=== PATIENT | male | born 1965 | race Two or more races ===

== ENCOUNTER 2018-09-07 16:11 | Inpatient (IN) | payer OTHER ==
[~2018-09-07] VITALS: Ht 182.9 cm; Wt 88.5 kg
--- NOTE | 2018-09-07 16:15 | NUR ---
PT [facility] FROM [facility] TO ER BED 15. PER REPORT, PT C/O LOWER ABDOMINAL PAIN SINCE THIS AM. PT DENIES N/V/D. GOWNED AND PLACED ON MONITOR. HYPERTENSIVE OTHERWISE STABLE VITALS. AWAITING MD PRUETT.
--- NOTE | 2018-09-07 17:22 | NUR ---
KAL SHELTON AT BEDSIDE FOR EVAL.
[2018-09-07] MEDS ORDERED: IV NS 0.9% 1,000 ML BAG IV ONE ×2 (17:30→19:30)
[2018-09-07] MEDS ORDERED: MORPHINE SULFATE INJ 2 MG/ML DISP.SYRIN IV ONE (17:30)
[2018-09-07] MEDS ORDERED: ONDANSETRON HCL/PF 4 MG/2 ML VIAL IVP ONE (17:30)
[2018-09-07 17:53] LABS: HEMATOCRIT 36 % (39-51); MEAN CORPUSCULAR HGB CONC 36 g/dl (31.0-36.0); MEAN CORPUSCULAR VOLUME 84 fL (80-96); PLATELET COUNT (AUTO) 92 /CMM (150-450); RDW COEFFICIENT OF VARIATION 13.7 (11.5-15.0); RED BLOOD CELL COUNT(AUTO) 4.31 MIL/uL (4.5-6.0); WHITE BLOOD COUNT (AUTO) 3.4 K/uL (4.3-11.0)
[2018-09-07] MEDS ORDERED: ONDANSETRON HCL/PF 4 MG/2 ML VIAL ONE (17:54)
[2018-09-07] MEDS ORDERED: MORPHINE SULFATE INJ 4 MG/ML DISP.SYRIN ONE (17:55)
[2018-09-07 18:10] LABS: APPEARANCE,URINE Clear (CLEAR); BILIRUBIN,URINE Negative (NEGATIVE); BLOOD, URINE Negative Ery/uL (NEGATIVE); COLOR,URINE Yellow (YELLOW); KETONES,URINE Negative (NEGATIVE); LEUKOCYTE ESTERASE ,URINE Negative (NEGATIVE); NITRITE, URINE Negative (NEGATIVE); PROTEIN,URINE Negative (NEGATIVE); UGLUCOSE >=1000 mg/dL (NEGATIVE); UROBILINOGEN,URINE 0.2 EU/dL (0.2)
[2018-09-07 18:35] LABS: BAND % (MANUAL) 18 % (0.0-5.0); LYMPHOCYTES % (MANUAL) 34 % (16-48); MONOCYTES % (MANUAL) 6 % (0-11.0); NEUTROPHILS % (MANUAL) 42 (42-76)
[2018-09-07 18:40] LABS: BACTERIA,URINE Few /HPF (None Seen); RBC,URINE 0-2 /HPF (0-2); SQUAMOUS EPITHELIAL CELL,UR Few /HPF (None Seen); WBC,URINE 0-2 /HPF (0-3)
[2018-09-07 18:48] LABS: ALBUMIN 3.8 g/dL (3.4-5.0); BILIRUBIN,DIRECT 0.1 mg/dL (0.0-0.2); BILIRUBIN,TOTAL 0.9 mg/dL (0.2-1.0); CALCIUM, SERUM 9.1 mg/dL (8.5-10.1); POTASSIUM 4.4 mmol/L (3.5-5.1); TOTAL PROTEIN, SERUM 7.9 g/dL (6.4-8.2)
[2018-09-07 19:12] LABS: INR 0.96 (0.87-1.13)
--- NOTE | 2018-09-07 19:19 | NUR ---
REPORT TO CHIKA SANDERS FOR [facility].
[2018-09-07] MEDS ORDERED: IV LR 1000 ML 1,000 ML IV ONE (19:30)
[2018-09-07] MEDS ORDERED: INSULIN REGULAR, HUMAN 100 UNIT in IV NS 0.9% 99 ML IV SCH ×2 (19:30)
--- NOTE | 2018-09-07 19:30 | NUR ---
PT AA/OX4. VSS. NAD. WILL CONTINUE TO MONITOR.
[2018-09-07] MEDS ORDERED: INSULIN REGULAR, HUMAN 100 UNIT/ML 10 ML VIAL ONE (19:38)
[2018-09-07 19:58] LABS: ABG BASE EXCESS -4.9 mmol/L; ABG OXYGEN SATURATION 94.7 % (92.0-98.5); ABG PCO2 38.7 mmHg (35.0-45.0); ABG PO2 76.3 mmHg (75.0-100.0); AaDO2 27.1 mmHg; COHb 0.5 % (0.5-1.5); MetHb 0.3 % (0.0-1.5); O2Hb 93.9 % (94.0-97.0); SITE, ABG Right Radial; VENT MODE, BG Room Air
--- NOTE | 2018-09-07 21:15 | NUR ---
Patient is resting comfortably in bed with eyes closed. Easily aroused. VSS
[2018-09-07] MEDS ORDERED: MORPHINE SULFATE INJ 2 MG/ML DISP.SYRIN IV PRN (21:30)
[2018-09-07] MEDS ORDERED: MAGNESIUM HYDROXIDE 30 ML UDC PO PRN (21:30)
[2018-09-07] MEDS ORDERED: HYDROCODONE/APAP 5/325MG 1 EACH TABLET PO PRN (21:30)
[2018-09-07] MEDS ORDERED: INSULIN REGULAR, HUMAN 100 UNIT in IV NS 0.9% 99 ML IV PRN ×2 (21:30)
[2018-09-07] MEDS ORDERED: ONDANSETRON HCL/PF 4 MG/2 ML VIAL IVP PRN (21:30)
[2018-09-07] MEDS ORDERED: ACETAMINOPHEN 325 MG TABLET PO PRN (21:30)
[2018-09-07] MEDS ORDERED: MAG HYDROX/AL HYDROX/SIMETH 30 ML UDC PO PRN (21:30)
[2018-09-07] MEDS ORDERED: MISCELLANEOUS MED 1 EA EA IV ONE ×2 (21:30→23:00)
[2018-09-07] MEDS ORDERED: Z GUARD REMEDY 2 OZ OINT TP PRN (21:30)
--- NOTE | 2018-09-07 21:30 | NUR ---
1L NS WITH 20mEQ KVL @ 250ML/HR, VERBAL ORDER BY DR NAGEL
[2018-09-07] MEDS ORDERED: IV PREMIX NS +20MEQ KCL 1 L IV ONE (21:44)
[2018-09-07] MEDS ORDERED: METF-442 PO (22:05)
[2018-09-07] MEDS ORDERED: ASPI-1169 PO (22:06)
[2018-09-07] MEDS ORDERED: LISI2.5T2 PO (22:07)
[2018-09-07] MEDS ORDERED: GLIP5TAB13 PO (22:08)
--- NOTE | 2018-09-07 22:12 | NUR ---
REPORT GIVEN TO SURGICAL INSTRUMENT MAKER MARIAM
[2018-09-07] MEDS: IV NS 0.9% 1,000 ML IV PRN (22:30)
--- NOTE | 2018-09-07 22:30 | NUR ---
INSTALLER INTERIOR ASSEMBLIES CALLED LAB FOR 2200 LAB DRAW.
[2018-09-07 22:36] VITALS: BP 167/119
--- NOTE | 2018-09-07 22:38 | NUR ---
PT TRANSPORTED TO ICU WITH STABLE CONDITION. VSS. NAD. VIA ACLS PROTOCOL
[2018-09-07] MEDS: BLOOD SUGAR DIAGNOSTIC 1 EACH STRIP IN SCH (22:54)
[2018-09-07 23:00] VITALS: BP 149/96
[2018-09-07 23:30] VITALS: BP 118/74
--- NOTE | 2018-09-07 23:30 | NUR ---
COMMAND AND CONTROL SPECIALIST SECOND CALL PLACED TO LAB FOR LAB WORK.
[2018-09-07 23:53] LABS: MAGNESIUM 1.5 mg/dL (1.8-2.4); POTASSIUM 3.5 mmol/L (3.5-5.1)
[2018-09-08] VITALS (25 sets, daily range): BP systolic 101–160; BP diastolic 43–120
[2018-09-08 00:05] LABS: CREATININE 0.8 mg/dL (0.6-1.3)
[2018-09-08] MEDS: BLOOD SUGAR DIAGNOSTIC 1 EACH STRIP IN SCH ×11 (00:58→21:00)
--- NOTE | 2018-09-08 01:00 | NUR ---
ADJUNCT PHILOSOPHY FACULTY CALL PLACED TO Marisel SANCHEZ FOR BLOOD GLUCOSE <250; PER SERVICE DR DUFFY IS DISTRIBUTION A CLASS LINEMAN.
--- NOTE | 2018-09-08 02:00 | NUR ---
DIRECTOR WRITING STILL AWAITING CALL BACK FROM DR DUFFY.
[2018-09-08 02:49] LABS: CALCIUM, SERUM 7.1 mg/dL (8.5-10.1); POTASSIUM 3.3 mmol/L (3.5-5.1)
[2018-09-08 02:55] LABS: CREATININE 0.8 mg/dL (0.6-1.3)
[2018-09-08] MEDS: IV NS 0.9% 1,000 ML IV PRN ×3 (03:26→14:25)
--- NOTE | 2018-09-08 04:50 | NUR ---
OUTREACH COORDINATOR PER [facility] SERVICE Marisel SANCHEZ IS WOMEN DESIGNER NOT DR DUFFY THEY WILL PAGE HIM.
[2018-09-08] MEDS ORDERED: DEXTROSE 50%-WATER 50 ML DISP.SYRIN IV PRN (05:00)
[2018-09-08] MEDS ORDERED: POTASSIUM CHLORIDE 20 MEQ TAB.PRT.SR PO ONE (05:00)
--- NOTE | 2018-09-08 05:30 | NUR ---
COATER SLATE INSULIN DRIP DISCONTINUED; BEGIN AGGRESSIVE SCALE.
[2018-09-08] MEDS: Magnesium 1GM/D5W 100ML PREMIX 100 ML IV SCH ×3 (05:32→06:32)
[2018-09-08] MEDS ORDERED: FERR325T24 PO (07:22)
[2018-09-08] MEDS ORDERED: ATOR40TA PO (07:22)
[2018-09-08] MEDS ORDERED: INSU100V7 SQ (07:22)
--- NOTE | 2018-09-08 07:30 | NUR ---
ICU/RN: Pt received in bed, breathing even and unlabored, no distress, blind, A&Ox4, denies abd discomfort. IVF infusing well. Pt oriented to unit, safety measures in place. Will cont to monitor pt status
[2018-09-08 08:29] LABS: BASOPHILS % (AUTO) 0.8 % (0.0-2.0); EOSINOPHILS % (AUTO) 2.7 % (0.0-6.0); HEMATOCRIT 33 % (39-51); HEMOGLOBIN 12.2 g/dL (13.5-17.5); LYMPHOCYTES # (AUTO) 1.4 /CMM (0.8-4.8); LYMPHOCYTES % (AUTO) 36.3 % (20.0-44.0); MEAN CORPUSCULAR HGB CONC 37 g/dl (31.0-36.0); MEAN CORPUSCULAR VOLUME 82 fL (80-96); MONOCYTES # (AUTO) 0.2 /CMM (0.1-1.30); MONOCYTES % (AUTO) 5.4 % (2.0-12.0); NEUTROPHILS % (AUTO) 54.8 % (43.0-81.0); PLATELET COUNT (AUTO) 66 /CMM (150-450); RED BLOOD CELL COUNT(AUTO) 4.05 MIL/uL (4.5-6.0); WHITE BLOOD COUNT (AUTO) 3.7 K/uL (4.3-11.0)
[2018-09-08] MEDS ORDERED: MORPHINE SULFATE INJ 4 MG/ML DISP.SYRIN IV PRN (08:30)
[2018-09-08] MEDS: INSULIN REGULAR, HUMAN 100 UNIT/ML 3 ML VIAL SQ PRN ×4 (09:02→20:53)
[2018-09-08 09:06] LABS: CALCIUM, SERUM 7.7 mg/dL (8.5-10.1); CREATININE 1.1 mg/dL (0.6-1.3); MAGNESIUM 2.1 mg/dL (1.8-2.4); PHOSPHORUS 3.2 mg/dL (2.5-4.9); POTASSIUM 4.6 mmol/L (3.5-5.1)
[2018-09-08 09:15] LABS: THYROID STIMULATING HORMONE 2.41 uIU/mL (0.358-3.74)
--- NOTE | 2018-09-08 11:00 | NUR ---
ICU/RN: Dr Hernandez at bedside; updated on pt status, labs reviewed. Pt off insulin drip. Tolerating diet, no abd pain noted.
--- NOTE | 2018-09-08 12:10 | NUR ---
ICU/RN: Blood glucose 486mg/DL, Dr Hernandez notified. Lantus SQ 20units x1 SQ in addition to 20 units R insulin per sliding scale and downgrade to tele ordered. middle school math teacher notified.
[2018-09-08] MEDS ORDERED: INSULIN GLARGINE, 100 UNIT/ML CARTRIDGE SQ ONE (12:30)
--- NOTE | 2018-09-08 15:50 | NUR ---
ICU/RN: Pt transferred to [facility] in stable condition, pt denies pain/discomfort. No s/s hypoglycemia, hyperglycemia. All belongings transferred with pt. Bedside report given to MARILYN Thayer for [facility].
--- NOTE | 2018-09-08 16:00 | NUR ---
MIRROR PAINTER NOTE RECEIVED PATIENT FROM ICU ALERT , ORIENTED X3 , PLACED ON TELE MONITOR SR ST 116 . STILL REFUIN BILATERAL DVT PUMPS . VS TAKEN, NO SOB NOTED, ON IVF ORDERED LT AC HL AND RT FA HL INTACT ,ALL NEEDS NEEDS ATTENDED ,WILL CONT TO MONITOR CLOSELY
[2018-09-08] MEDS: FERROUS SULFATE (325 MG) 325 MG/TAB TABLET PO SCH (16:51)
[2018-09-08] MEDS: glipiZIDE 5 MG TABLET PO SCH (17:27)
--- NOTE | 2018-09-08 18:48 | NUR ---
CAUL PULLER NOTE RESTING COMFORTABLY NOT IN DISTRESS, ALL NEEDS ATTENDED, CALL LIGHT WITHIN REACH
--- NOTE | 2018-09-08 21:31 | NUR ---
RN NOTES IN BED RESTING COMFORTABLY WITH NO DISTRESS NOTED. BREATHING EVEN AND UNLABORED. NO COMPLAINT OF PAIN OR DISCOMFORT. ALERT AND ORIENTED, VERBALLY ABLE TO COMMUNICATE NEEDS. CALLED MD RE: JAEL WILD, ORDERED TO HOLD FOR TODAY AND TO START TOMORROW. NOTED AND CARRIED OUT. WILL CONTINUE TO MONITOR
--- NOTE | 2018-09-08 21:32 | NUR ---
Patient lives at home with family. He is ambulatory and independent with adl's. Has hx of insulin dependent diabetes. Has glucometer, stated he monitor his blood sugar regularly and has been compliant with medications. Current dc plan is to dc back home, family will provide ride. Addendum: 09/08/18 at 2133 by JOSSIE MORENO RN Amended: Links added.
[2018-09-08] MEDS ORDERED: INSULIN GLARGINE, 100 UNIT/ML CARTRIDGE SQ SCH (22:00)
[2018-09-09] VITALS: BP 123/91
[2018-09-09] MEDS: INSULIN REGULAR, HUMAN 100 UNIT/ML 3 ML VIAL SQ PRN ×4 (01:16→12:55)
[2018-09-09] MEDS: BLOOD SUGAR DIAGNOSTIC 1 EACH STRIP IN SCH ×5 (01:17→17:06)
[2018-09-09 04:00] VITALS: BP 111/70
--- NOTE | 2018-09-09 05:55 | NUR ---
RN NOTES NO COMPLAINT OF PAIN OF THIS TIME. NO DISTRESS NOTED. BLOOD SUGAR AT 0100 WAS 215 WITH 8 UNITS AND AT 0500 254 WITH 12 UNITS OF INSULIN PER SLIDING SCALE. MD MADE AWARE. RESTING COMFORTABLY IN BED. VITAL SIGNS WNL. WILL CONTINUE TO MONITOR AND ENDORSE TO AM SHIFT FOR CONTINUITY OF CARE
--- NOTE | 2018-09-09 07:10 | NUR ---
TELE/RN INITIAL NOTES RECEIVED PT IN BED, A/OX3, TOLERATING ROOM AIR WELL, NO SOB NOTED. NO C/O PAIN AT THIS TIME. SR ON TELEMONITOR. IV LINES INTACT AND PATENT. NO SIGNS OF HYPO/HYPERGLYCEMIA NOTED. HOB ELEVATED. SAFETY MEASURES IN PLACED. CALL LIGHT WITHIN REACH. WILL CONT TO MONITOR
[2018-09-09 08:00] VITALS: BP 110/70
[2018-09-09] MEDS ORDERED: LISINOPRIL (10MG) 10 MG TABLET PO SCH (09:00)
[2018-09-09] MEDS: METFORMIN 500 MG TABLET PO SCH ×2 (09:00→17:00)
[2018-09-09] MEDS ORDERED: ASPIRIN 81 MG TAB.CHEW PO SCH (09:00)
[2018-09-09] MEDS ORDERED: ATORVASTATIN 40 MG TABLET PO SCH (09:00)
[2018-09-09] MEDS: glipiZIDE 5 MG TABLET PO SCH ×2 (09:00→17:00)
[2018-09-09] MEDS: FERROUS SULFATE (325 MG) 325 MG/TAB TABLET PO SCH ×2 (09:00→17:00)
[2018-09-09 12:00] VITALS: BP 105/58
[2018-09-09] MEDS ORDERED: INSULIN GLARGINE, 100 UNIT/ML CARTRIDGE SQ ONE (13:30)
[2018-09-09] MEDS ORDERED: INSU100V7 SQ (14:17)
[2018-09-09 16:00] VITALS: BP 112/72
--- NOTE | 2018-09-09 16:49 | NUR ---
RN NOTES OFFERED FLU VACCINE TO PT, PT REFUSED. EXPLAINED RISKS AND BENEFITS, PT STRONGLY REFUSED
--- NOTE | 2018-09-09 17:21 | NUR ---
RN NOTES D/C PT TO HOME, ACCOMPANIED BY SISTER, ADWOA. IN STABLE CONDITION. D/C INSTRUCTIONS GIVEN TO PT AND PT'S SISTER. BOTH VERBALIZED UNDERSTANDING. SAFETY MEASURES OBSERVED AT ALL TIMES. D/C IV LINES. PLACED PRESSURE DRESSING. NO BLEEDING NOTED. D/C
== END 2018-09-09 17:23 | disposition home or self-care (01) | DRG 637 ==
LOC: ER 16:13 → ICU 21:56 → TELE1 09-08 15:53 → MEDSG1 09-09 14:39
PROVIDERS: ADMIT Nurse Practitioner Acute Care; ATTEND Nurse Practitioner Acute Care
DX: E11.10 Type 2 diabetes mellitus with ketoacidosis without coma (principal); N17.0 Acute kidney failure with tubular necrosis; E87.1 Hypo-osmolality and hyponatremia; E11.65 Type 2 diabetes mellitus with hyperglycemia; D63.8 Anemia in other chronic diseases classified elsewhere; E66.01 Morbid (severe) obesity due to excess calories; I10 Essential (primary) hypertension; Z79.4 Long term (current) use of insulin; D69.6 Thrombocytopenia, unspecified; D72.819 Decreased white blood cell count, unspecified; Z91.14 Patient's other noncompliance with medication regimen; R16.1 Splenomegaly, not elsewhere classified; H54.8 Legal blindness, as defined in USA
CPT/HCPCS: 36415; 36600; 80048-TC; 80061-TC; 80076-TC; 81000-TC; 82803-TC; 82962-TC; 83690-TC; 83735-TC; 84100-TC; 84443-TC; 85025-TC; 85730-TC; 87081-TC; A4606; G0378; J1815; J2270; J2405; J3475; J3490; J7030; J7120; Z7610

== ENCOUNTER 2020-04-29 17:39 | Inpatient (IN) | payer MEDICARE, OTHER ==
[~2020-04-29] VITALS: Ht 185.4 cm; Wt 81.6 kg
[~2020-04-29 17:39] MED LIST: ASPI-1169 PO; ATOR40TA PO; FERR325T24 PO; GLIP5TAB13 PO; INSU100V7 SQ; LISI2.5T2 PO; METF-442 PO
--- NOTE | 2020-04-29 17:50 | NUR ---
[id number] FROM [facility] C/O ABDOMINAL PAIN SINCE TUESDAY DENIES N/V/D. PATIENT A/OX4, BREATHING EVEN AND UNLABORED, NO SOB NOTED, NEEDS ATTENDED, KEPT COMFORTABLE.
--- NOTE | 2020-04-29 18:27 | NUR ---
ACCUECHECK > 600 SIXTO CATHERINE MADE AWARE
[2020-04-29] MEDS ORDERED: INSULIN REGULAR, HUMAN 100 UNIT/ML 10 ML VIAL ONE (18:28)
[2020-04-29] MEDS ORDERED: ONDANSETRON HCL/PF 4 MG/2 ML VIAL ONE (18:28)
[2020-04-29] MEDS ORDERED: ACETAMINOPHEN ES 500 MG TABLET ONE (18:28)
[2020-04-29] MEDS ORDERED: ONDANSETRON HCL/PF 4 MG/2 ML VIAL IVP ONE (18:30)
[2020-04-29] MEDS ORDERED: ACETAMINOPHEN ES 500 MG TABLET PO ONE (18:30)
[2020-04-29] MEDS ORDERED: INSULIN REGULAR, HUMAN 100 UNIT/ML 10 ML VIAL SQ ONE (18:30)
[2020-04-29] MEDS ORDERED: IV NS 0.9% 1,000 ML BAG IV ONE ×2 (18:30→20:30)
--- NOTE | 2020-04-29 18:39 | NUR ---
RETREAD TECHNICIAN AT BEDSIDE FOR XRAYS. US TECH AT BEDSIDE.
[2020-04-29 18:40] LABS: LIPASE 446 U/L (73-393)
[2020-04-29] MEDS ORDERED: INSU100V7 SQ (18:48)
[2020-04-29] MEDS ORDERED: ESCI10TA PO (18:48)
--- NOTE | 2020-04-29 19:01 | NUR ---
TOOK OVER PT CARE. PT AAOX4. ORIGIONAL C/O EPIGASTRIC PAIN. US AT BEDSIDE.
[2020-04-29 19:07] LABS: BASOPHILS % (AUTO) 0.5 % (0.0-2.0); EOSINOPHILS % (AUTO) 2.3 % (0.0-6.0); HEMATOCRIT 39 % (39-51); HEMOGLOBIN 12.9 g/dL (13.5-17.5); LYMPHOCYTES # (AUTO) 1.3 /CMM (0.8-4.8); LYMPHOCYTES % (AUTO) 22.7 % (20.0-44.0); MEAN CORPUSCULAR HGB CONC 34 g/dl (31.0-36.0); MEAN CORPUSCULAR VOLUME 88 fL (80-96); MONOCYTES # (AUTO) 0.4 /CMM (0.1-1.30); MONOCYTES % (AUTO) 6.2 % (2.0-12.0); NEUTROPHILS % (AUTO) 68.3 % (43.0-81.0); PLATELET COUNT (AUTO) 122 /CMM (150-450); RED BLOOD CELL COUNT(AUTO) 4.39 MIL/uL (4.5-6.0); WHITE BLOOD COUNT (AUTO) 5.8 K/uL (4.3-11.0)
[2020-04-29 19:09] LABS: APPEARANCE,URINE Clear (CLEAR); BILIRUBIN,URINE Negative (NEGATIVE); BLOOD, URINE Negative Ery/uL (NEGATIVE); COLOR,URINE Yellow (YELLOW); KETONES,URINE Negative (NEGATIVE); LEUKOCYTE ESTERASE ,URINE Negative (NEGATIVE); NITRITE, URINE Negative (NEGATIVE); PROTEIN,URINE Negative (NEGATIVE); UGLUCOSE >=1000 mg/dL (NEGATIVE); UROBILINOGEN,URINE 0.2 EU/dL (0.2)
--- NOTE | 2020-04-29 19:09 | NUR ---
covid swab sent to lab
--- NOTE | 2020-04-29 19:16 | NUR ---
ENDORSED TO SHAZIA SANDERS FOR [facility].
[2020-04-29 19:37] LABS: BACTERIA,URINE Rare /HPF (None Seen); RBC,URINE NONE SEEN /HPF (0-2); SQUAMOUS EPITHELIAL CELL,UR Few /HPF (None Seen); WBC,URINE NONE SEEN /HPF (0-3)
[2020-04-29] MEDS ORDERED: METF-442 PO (19:48)
--- NOTE | 2020-04-29 19:48 | NUR ---
MED LIST UPDATED.
--- NOTE | 2020-04-29 20:20 | NUR ---
Patient is resting comfortably in bed. Easily aroused. VSS.
[2020-04-29 20:36] LABS: CREATININE 2.6 mg/dL (0.6-1.3); POTASSIUM 5.7 mmol/L (3.5-5.1)
[2020-04-29 20:39] LABS: BILIRUBIN,DIRECT 0.1 mg/dL (0.0-0.2); BILIRUBIN,TOTAL 1.2 mg/dL (0.2-1.0); TOTAL PROTEIN, SERUM 8.5 g/dL (6.4-8.2)
[2020-04-29] MEDS ORDERED: IV NS 0.9% 1,000 ML IV PRN ×2 (20:47→23:00)
[2020-04-29] MEDS ORDERED: MAG HYDROX/AL HYDROX/SIMETH 30 ML UDC PO PRN (21:00)
[2020-04-29] MEDS ORDERED: ONDANSETRON HCL/PF 4 MG/2 ML VIAL IVP PRN (21:00)
[2020-04-29] MEDS ORDERED: INSULIN REGULAR, HUMAN 100 UNIT in IV NS 0.9% 100 ML IV PRN ×2 (21:00)
[2020-04-29] MEDS ORDERED: MAGNESIUM HYDROXIDE 30 ML UDC PO PRN (21:00)
[2020-04-29] MEDS ORDERED: IV NS 0.9% 1,000 ML IV SCH (21:00)
[2020-04-29] MEDS ORDERED: ACETAMINOPHEN 325 MG TABLET PO PRN (21:00)
[2020-04-29] MEDS ORDERED: Z GUARD REMEDY 2 OZ OINT TP PRN (21:00)
[2020-04-29] MEDS ORDERED: HYDROCODONE/APAP 5/325MG 1 EACH TABLET PO PRN (21:00)
--- NOTE | 2020-04-29 21:01 | NUR ---
CALLED PHARMACY RE: INSULIN DRIP. PHARMACY TO MAKE THE DRIP.
[2020-04-29 21:07] LABS: ABG BASE EXCESS -7.4 mmol/L; ABG OXYGEN SATURATION 97.1 % (92.0-98.5); ABG PCO2 36.8 mmHg (35.0-45.0); ABG PH 7.311 (7.350-7.450); AaDO2 3.7 mmHg; COHb 0.3 % (0.5-1.5); MetHb 0.3 % (0.0-1.5); O2Hb 96.5 % (94.0-97.0); SITE, ABG Right Radial; VENT MODE, BG RA
--- NOTE | 2020-04-29 21:20 | NUR ---
INSULIN DRIP STARTED AT 7/HR PER ORDR.
--- NOTE | 2020-04-29 21:33 | NUR ---
ADMIT TO ICU 261
--- NOTE | 2020-04-29 21:59 | NUR ---
BG [id number]
[2020-04-29 22:08] LABS: CREATININE 2.1 mg/dL (0.6-1.3); PHOSPHORUS 3.3 mg/dL (2.5-4.9); POTASSIUM 5.4 mmol/L (3.5-5.1)
--- NOTE | 2020-04-29 22:17 | NUR ---
REPORT GIVEN TO BO SANDERS FOR [facility]
[2020-04-29 22:45] VITALS: BP_SYST 130; BP_SYST 131; BP_DIAS 91
--- NOTE | 2020-04-29 22:47 | NUR ---
PT TRANSFERED PER ACLS PROTOCOL
--- NOTE | 2020-04-29 22:50 | NUR ---
AUTOMATED ACCESS SYSTEMS TECHNICIAN: RECEIVED PT ADMITTED FOR DKA. A/O X3, ON ROOM AIR WT NO ACUTE DISTRESS. NO C/O PAIN. RECEIVED ON INSULIN DRIP AT 7U/HR AND NS AT 250ML/HR. NO S/S OF IV INFILTRATION. SR ON OFFICE ASSOCIATE. AFEBRILE. WILL CLARIFY ADMISSION ORDERS WT DR. GILL. BODY CHECK DONE. BED IN LOWEST POSITION AND LOCKED, HOB AT 45 DEGREES, SIDE RAILS UP X2, BED ALARM ACTIVATED, CALL LIGHT WITHIN REACH. WILL CONTINUE TO MONITOR.
[2020-04-29] MEDS: INSULIN REGULAR, HUMAN 100 UNIT in IV NS 0.9% 99 ML IV PRN ×2 (23:03)
[2020-04-30] VITALS (22 sets, daily range): BP systolic 95–149; BP diastolic 54–97
[2020-04-30] MEDS: BLOOD SUGAR DIAGNOSTIC 1 EACH STRIP IN SCH ×20 (00:02→20:07)
[2020-04-30] MEDS: IV D5/0.45 NACL 1,000 ML IV PRN ×2 (00:09→10:23)
[2020-04-30 03:10] LABS: BASOPHILS # (AUTO) 0.1 /CMM (0.0-0.2); BASOPHILS % (AUTO) 0.8 % (0.0-2.0); EOSINOPHILS % (AUTO) 5.2 % (0.0-6.0); HEMATOCRIT 36 % (39-51); HEMOGLOBIN 12.7 g/dL (13.5-17.5); LYMPHOCYTES # (AUTO) 3.2 /CMM (0.8-4.8); LYMPHOCYTES % (AUTO) 46.7 % (20.0-44.0); MEAN CORPUSCULAR HGB CONC 35 g/dl (31.0-36.0); MEAN CORPUSCULAR VOLUME 82 fL (80-96); MONOCYTES # (AUTO) 0.5 /CMM (0.1-1.30); NEUTROPHILS # (AUTO) 2.8 /CMM (1.8-8.9); NEUTROPHILS % (AUTO) 40.3 % (43.0-81.0); PLATELET COUNT (AUTO) 100 /CMM (150-450); RED BLOOD CELL COUNT(AUTO) 4.41 MIL/uL (4.5-6.0)
[2020-04-30 03:14] LABS: CREATININE 1.7 mg/dL (0.6-1.3); PHOSPHORUS 4.6 mg/dL (2.5-4.9); POTASSIUM 4.2 mmol/L (3.5-5.1)
--- NOTE | 2020-04-30 06:30 | NUR ---
WICK AND BASE ASSEMBLER: CONTINUE ON INSULIN DRIP AT 3.3 U/HR AND D5 1/2NS AT 100ML/HR. REMAINED A/O X 3, ON ROOM AIR WT NO ACUTE DISTRESS AND NO C/O PAIN. SR ON HAULING CONTRACTOR. AFEBRILE. ABLE TO VOID ON URINAL. SAFETY PRECAUTION NOTED AT ALL TIMES. WILL CONTINUE TO MONITOR.
--- NOTE | 2020-04-30 07:53 | NUR ---
WOUND CARE CONSULT: REVIEWED CHART, NURSING DOCUMENTATION AND PHOTOS WHICH SHOW FOOT WOUNDS, PRESENT ON ADMISSION. RECOMMEND DPM CONSULT. DR PAYNE NOTIFIED OF CONSULT REQUEST. CURRENT KING SCORE IS 17. WILL SEE PRN. FORTE IN AGREEMENT WITH PLAN OF CARE.
--- NOTE | 2020-04-30 08:24 | NUR ---
RECEIVED PT IN BED .ALERT AND ORIENTED X3. SR . PT DX IS DKA . BLOOD SUGAR IS 229 INSULIN DRIP SET UP 3.4U.PT HAS LEFT IV FLUSH IS FLUSEHD WELL AND INTACT. RIGHT IV FLUSHED IS INTAKE AND FLUSHED WELL. SAFETY MEASUREMENTS ARE IMPLEMENTED. PILI IS IN LOWEST POSITION. CALL LIGHT WITHIN REACH. WILL CONTINUE TO MONITOR.
[2020-04-30 10:00] LABS: CALCIUM, SERUM 8.8 mg/dL (8.5-10.1); CREATININE 1.5 mg/dL (0.6-1.3); PHOSPHORUS 3.4 mg/dL (2.5-4.9); POTASSIUM 3.7 mmol/L (3.5-5.1)
--- NOTE | 2020-04-30 11:00 | NUR ---
HOME VISITOR NOTES THE SYSTEM DID NOT ASK FOR 2 NURSES TO COSIGN FOR THE INSULIN DRIP. 2 NURSES WERE PRESENT ON THE ADMINISTRATION OF INSULIN.
--- NOTE | 2020-04-30 11:18 | NUR ---
QA REVIEWER NOTES INFORMED DR GILL FOR NEW BMP RESULTS. HE INFORMED THAT HE WAS THE PROVIDER FOR THE PATIENT AT NIGHT TIME BUT HE WANTS TO CONTINUE THE INSULIN DRIP WITH LOWER BICARB RESULTS. WILL FOLLOW THE ORDER UNTIL THE DAY PROVIDER IS ASSIGNED TO THE PATIENT.
[2020-04-30] MEDS: INSULIN REGULAR, HUMAN 100 UNIT in IV NS 0.9% 99 ML IV PRN ×2 (12:06)
--- NOTE | 2020-04-30 15:42 | NUR ---
ROLLER INSPECTOR AND MENDER NOTES PHARMACY CALLED AND ASKED FOR METFORMIN (HOME MED) FREQUENCY. ASKED PATIENT THE FREQUENCY AND HE CONFIRMED THAT HE TAKES METFORMIN 2 TIMES A DAY.
[2020-04-30 16:15] LABS: CALCIUM, SERUM 8.8 mg/dL (8.5-10.1); CREATININE 1.3 mg/dL (0.6-1.3); POTASSIUM 3.8 mmol/L (3.5-5.1)
--- NOTE | 2020-04-30 16:26 | NUR ---
county agricultural agent notes we contacted dr Green for diet order.per dr Green it is ok for patient to have diabetic diet order after insulin is discontinue at 20:00 at 04/30/2020
[2020-04-30] MEDS: METFORMIN 500 MG TABLET PO SCH (17:05)
[2020-04-30] MEDS: glipiZIDE 5 MG TABLET PO SCH (17:06)
--- NOTE | 2020-04-30 17:58 | NUR ---
WEATHERIZATION ADMINISTRATOR CLOSING NOTES PT IS RESTING IN BED COMFORTABLE. ALERT AND ORIENTED X3 MENTAL DEVELOPMENT DELAY. RFA#18 IS WELL FLUSHED AND INTACT. LFA#18 IS WELL FLUSHED AND INTACT.HR 83 SR. USES URINAL. NO BOWEL MOVEMENT. IV 5% DEXTROSE AND 0.45% NS.R/O COVID. COVID AND MRSA ARE STILL PENDING. BED IS IN LOWEST POSITION. CALL LIGHT WITHIN REACH. SAFETY MEASUREMENTS ARE IMOLEMENTED. RIGHT AND LEFT FOOT WOUND SKIN TREATMENT WERE IMPLEMENTED.WILL ENDORSE TO NIGHTSTNUsingMiles FOR [facility].
--- NOTE | 2020-04-30 18:49 | NUR ---
CHIEF MEDICAL DIRECTOR NOTES PER DR ASHTON IT IS OK TO DOWN GRADE THE PATIENT TO MED SURG AFTER INSULIN STOPPED AT 20:00 .
[2020-04-30] MEDS: INSULIN GLARGINE, 100 UNIT/ML CARTRIDGE SQ SCH (19:01)
--- NOTE | 2020-04-30 19:30 | NUR ---
RESIDENTIAL ADVISOR OPENING NOTES: Received pt resting in bed, A&Ox3, noted with developmental delays. On isolation for R/O Covid. On RA O2 WNL. No SOB or respiratory distress noted. SR on tele monitor. Pt NPO except meds. RFA #18 and LFA #18 patent and flushing with D5 1/2NS running at 100,l/hr and insulin drip at 3units/hr. Insulin drip to be d/c'd at 1999. No pain noted at this time. Safety measures in place. Will continue to monitor.
--- NOTE | 2020-04-30 20:09 | NUR ---
INFRASTRUCTURE ARCHITECT NOTE: 1957: Checked pt's accucheck : BS 170. Paged Dr. Yin. 2003: Spoke w/ Dr. Yin regarding sliding scale. Gave orders for moderate sliding scale. Order noted and carried out.
[2020-04-30] MEDS ORDERED: DEXTROSE 50%-WATER 50 ML DISP.SYRIN IV PRN (20:30)
--- NOTE | 2020-04-30 21:04 | NUR ---
RN NOTE: Gave report to MARILYN Chance for [facility].
[2020-05-01] MEDS: BLOOD SUGAR DIAGNOSTIC 1 EACH STRIP VI SCH ×5 (00:10→21:46)
[2020-05-01] MEDS: INSULIN REGULAR, HUMAN 100 UNIT/ML 3 ML VIAL SQ PRN ×3 (00:12→12:44)
[2020-05-01] MEDS: *INSULIN REGULAR(HUMULIN R)HUM 100 UNIT/ML VIAL SQ PRN ×2 (00:22→21:41)
[2020-05-01 01:00] VITALS: BP 91/61
--- NOTE | 2020-05-01 02:14 | NUR ---
HOSPICE CARE CONSULTANT: RECEIVED PATIENT Patient in bed, awake. Tolerating room air. Left foot wound with gauze, denies pain. Patient is legally blind. Fall precaution maintained.
[2020-05-01] MEDS: IV D5/0.45 NACL 1,000 ML IV PRN ×2 (03:28→14:50)
--- NOTE | 2020-05-01 06:56 | NUR ---
MS RN: END OF SHIFT REPORT Patient in bed, adequate oxygenation on room air. IVF infusing. Bilateral foot wound with gauze, denies pain. Afebrile overnight. Slept well. Fall, skin precaution maintained. Will endorse to oncoming RN for continuity of care.
--- NOTE | 2020-05-01 07:40 | NUR ---
RN OPENING NOTES RECEIVED PATIENT SLEEPING IN BED COMFORTABLY, NO S/SX OF DISTRESS. PT IS AOX3, VERBAL, AND ON BED REST. HE IS ON RA, TOLERATING WELL, NO SOB OR RESP DISTRESS. WOUNDS PRESENT ON BILATERAL FEET, WILL ADDRESS PER WOUND CARE PLAN. IV SITE ON RFA 18 AND LFA 18 ARE PATENT AND INTACT. CONTACT AND DROPLET ISO HAVE BEEN IMPLEMENTED AND ENFORCED FOR COVID 19. SAFETY MEASURES HAVE BEEN IMPLEMENTED, CALL LIGHT IS WITHIN REACH, BED IS IN LOWEST AND LOCKED POSITION, SIDE RAILS UP X2, WILL CONTINUE TO MONITOR FOR ANY CHANGES.
[2020-05-01 08:00] VITALS: BP 125/55
[2020-05-01] MEDS: ESCITALOPRAM OXALATE (10 MG) 10 MG TABLET PO SCH (08:47)
[2020-05-01] MEDS: METFORMIN 500 MG TABLET PO SCH ×3 (08:47→16:53)
[2020-05-01] MEDS: glipiZIDE 5 MG TABLET PO SCH ×2 (08:48→16:48)
[2020-05-01] MEDS: LISINOPRIL (5MG) 5 MG TABLET PO SCH (08:48)
[2020-05-01] MEDS: ATORVASTATIN 40 MG TABLET PO SCH (08:48)
[2020-05-01] MEDS: HYDROGEL DRESSING 90 GM TUBE TP SCH (08:48)
[2020-05-01] MEDS: ASPIRIN 81 MG TAB.CHEW PO SCH (08:48)
[2020-05-01 12:00] VITALS: BP 142/89
[2020-05-01 16:00] VITALS: BP_SYST 142; BP_SYST 146; BP_DIAS 89
--- NOTE | 2020-05-01 19:00 | NUR ---
RN CLOSING NOTES PATIENT IS RESTING COMFORTABLY IN BED AT THIS TIME, NO S/SX OF DISTRESS. PT IS ON RA, TOLERATING WELL. IV SITE ARE PATENT AND INTACT, COVID PENDING, CONTACT AND DROPLET ISO HAVE BEEN IMPLEMENTED AND ENFORCED. PT NEEDS HAVE BEEN MET, VITAL SIGNS ARE STABLE, NO ACUTE CHANGES OCCURRED THROUGHOUT THE SHIFT. SAFETY MEASURES HAVE BEEN IMPLEMENTED, CALL LIGHT IS WITHIN REACH, BED IS IN LOWEST AND LOCKED POSITION, SIDE RAILS UP X2, PT WILL BE ENDORSED TO NIGHTSHIFT RN FOR [facility].
[2020-05-01 20:00] VITALS: BP 119/75
--- NOTE | 2020-05-01 20:00 | NUR ---
RN OPENING NOTES RECEIVED PATIENT IN BED COMFORTABLY,A/OX3 ,VERBAL, STILL PENDING COVID 19 ,ON RA SATING 99%TOLERATING WELL, NO SOB OR RESP DISTRESS. IV SITE ON RFA 18 AND LFA 18 ARE PATENT AND INTACT ON D5 1/2 NS AT 100CC/HR INFUSING WELL ,DUE MEDS GIVEN ORDERED ALL NEEDS ATTENDED TOO. ON DROPLET ISOLATION, SAFETY MEASURES HAVE BEEN IMPLEMENTED, CALL LIGHT IS WITHIN REACH, BED IS IN LOWEST AND LOCKED POSITION, SIDE RAILS UP X2, WILL CONTINUE TO MONITOR FOR ANY CHANGES. V/S STABLE AFEBRILE.
[2020-05-01] MEDS: INSULIN GLARGINE, 100 UNIT/ML CARTRIDGE SQ SCH (21:33)
--- NOTE | 2020-05-01 22:00 | NUR ---
MS RN NOTES BLOOD SUGAR AT 10PM IS 375MG/DL; 15 UNITS OF LANTUS GIVEN AND 10 UNITS OF REGULAR INSULIN GIVEN PER SLIDING SCALE .
[2020-05-02] VITALS: BP 119/70
[2020-05-02] MEDS: IV D5/0.45 NACL 1,000 ML IV PRN (03:11)
--- NOTE | 2020-05-02 05:11 | NUR ---
MS RN NOTES PTS REMAINS IN BED AWAKE AND RESPONSIVE,NO C/O OF PAIN,ALL NEEDS ATTENDED TOO CALL LIGHT WITHIN REACH , KEPT PTS COMFORTABLE IN BED , WILL ENDORSE TO RN DAY SHIFT FOR CONTINUITY OF CARE.
[2020-05-02 06:22] LABS: BASOPHILS % (AUTO) 0.6 % (0.0-2.0); EOSINOPHILS % (AUTO) 6.7 % (0.0-6.0); HEMATOCRIT 34 % (39-51); HEMOGLOBIN 11.6 g/dL (13.5-17.5); LYMPHOCYTES # (AUTO) 1.9 /CMM (0.8-4.8); LYMPHOCYTES % (AUTO) 45.1 % (20.0-44.0); MEAN CORPUSCULAR HGB CONC 34 g/dl (31.0-36.0); MEAN CORPUSCULAR VOLUME 84 fL (80-96); MONOCYTES # (AUTO) 0.3 /CMM (0.1-1.30); MONOCYTES % (AUTO) 6.4 % (2.0-12.0); NEUTROPHILS # (AUTO) 1.8 /CMM (1.8-8.9); NEUTROPHILS % (AUTO) 41.2 % (43.0-81.0); PLATELET COUNT (AUTO) 85 /CMM (150-450); RED BLOOD CELL COUNT(AUTO) 4.07 MIL/uL (4.5-6.0); WHITE BLOOD COUNT (AUTO) 4.3 K/uL (4.3-11.0)
[2020-05-02 07:14] LABS: CALCIUM, SERUM 8.4 mg/dL (8.5-10.1); CREATININE 1.2 mg/dL (0.6-1.3); MAGNESIUM 1.6 mg/dL (1.8-2.4); PHOSPHORUS 3.4 mg/dL (2.5-4.9); POTASSIUM 3.9 mmol/L (3.5-5.1); TOTAL PROTEIN, SERUM 6.6 g/dL (6.4-8.2)
[2020-05-02 08:00] VITALS: BP 136/90
[2020-05-02] MEDS: ATORVASTATIN 40 MG TABLET PO SCH (08:03)
[2020-05-02 08:04] VITALS: BP 136/90
[2020-05-02] MEDS: LISINOPRIL (5MG) 5 MG TABLET PO SCH (08:04)
[2020-05-02] MEDS: ESCITALOPRAM OXALATE (10 MG) 10 MG TABLET PO SCH (08:04)
[2020-05-02] MEDS: glipiZIDE 5 MG TABLET PO SCH (08:04)
[2020-05-02] MEDS: METFORMIN 500 MG TABLET PO SCH (08:04)
[2020-05-02] MEDS: ASPIRIN 81 MG TAB.CHEW PO SCH (08:04)
[2020-05-02] MEDS: HYDROGEL DRESSING 90 GM TUBE TP SCH (08:05)
[2020-05-02] MEDS: INSULIN REGULAR, HUMAN 100 UNIT/ML 3 ML VIAL SQ PRN (08:24)
[2020-05-02] MEDS: BLOOD SUGAR DIAGNOSTIC 1 EACH STRIP VI SCH (08:25)
--- NOTE | 2020-05-02 10:00 | NUR ---
received pt from table games shift manager, alert, follows commands, SR, on RA, sat well, tolerates diet, urinate in urinal, v/s stable, no pain, pt turns and repositions by himself.
[2020-05-02] MEDS ORDERED: Magnesium 1GM/D5W 100ML PREMIX 100 ML IV SCH (10:53)
--- NOTE | 2020-05-02 11:40 | NUR ---
pt D/C home, picked up by family member, v/s stable, no pain, pt belongings and D/C instruction given to the patient, pt verbalized understanding regarding D/C instructions, pt is covid 19 negative.
[2020-05-02 13:44] LABS: BAND % (MANUAL) 1 % (0.0-5.0); EOSINOPHILS % (MANUAL) 4 % (0-4); LYMPHOCYTES % (MANUAL) 47 % (16-48); MONOCYTES % (MANUAL) 7 % (0-11.0); MYELOCYTES % 1 % (0-0); NEUTROPHILS % (MANUAL) 40 (42-76)
== END 2020-05-02 11:45 | disposition home health service (06) | DRG 637 ==
LOC: ER 17:47 → ICU 21:19 → MEDSG1 04-30 21:55
PROVIDERS: ADMIT Internal Medicine
DX: E11.10 Type 2 diabetes mellitus with ketoacidosis without coma (principal); N17.0 Acute kidney failure with tubular necrosis; G93.41 Metabolic encephalopathy; E87.1 Hypo-osmolality and hyponatremia; E87.2 Acidosis; E86.1 Hypovolemia; E87.5 Hyperkalemia; I10 Essential (primary) hypertension; Z79.84 Long term (current) use of oral hypoglycemic drugs; H54.8 Legal blindness, as defined in USA; E11.621 Type 2 diabetes mellitus with foot ulcer; L97.519 Non-pressure chronic ulcer of other part of right foot with unspecified severity; L97.529 Non-pressure chronic ulcer of other part of left foot with unspecified severity; Z79.4 Long term (current) use of insulin; Z91.19 Patient's noncompliance with other medical treatment and regimen; Z79.82 Long term (current) use of aspirin; T46.4X5A Adverse effect of angiotensin-converting-enzyme inhibitors, initial encounter; Y92.009 Unspecified place in unspecified non-institutional (private) residence as the place of occurrence of the external cause
CPT/HCPCS: 36415; 36600; 71100-TC; 76705-TC; 80048-TC; 80053-TC; 80076-TC; 81000-TC; 82803-TC; 82962-TC; 83690-TC; 83735-TC; 84100-TC; 84484-TC; 85025-TC; 87081-TC; 93971-TC; A6248; G0378; J1815; J2405; J3475; J3490; J7030; J7050; U0003-CS

== ENCOUNTER 2020-06-30 20:26 | Inpatient (IN) | payer MEDICARE, OTHER ==
[~2020-06-30] VITALS: Ht 188 cm; Wt 84.8 kg
[~2020-06-30 20:26] MED LIST changes: +ESCI10TA PO; -FERR325T24 PO
--- NOTE | 2020-06-30 20:29 | NUR ---
AZALEA 881 FROM HOME FOR C/O R ABD PAIN X 1 DAY. - N/V/D., PT TO BED 11, AWAKE, ALERT, VSS, NAD NOTED, PENDING MD PRUETT
[2020-06-30] MEDS ORDERED: ONDANSETRON HCL/PF 4 MG/2 ML VIAL ONE (21:00)
[2020-06-30] MEDS ORDERED: ONDANSETRON HCL/PF 4 MG/2 ML VIAL IVP ONE (21:00)
[2020-06-30] MEDS ORDERED: IV NS 0.9% 1,000 ML BAG IV ONE ×2 (21:00→22:00)
[2020-06-30] MEDS ORDERED: MORPHINE SULFATE INJ 2 MG/ML DISP.SYRIN IV ONE (21:00)
--- NOTE | 2020-06-30 21:00 | NUR ---
URINE COLLECTED SENT TO LAB
[2020-06-30] MEDS ORDERED: MORPHINE SULFATE INJ 4 MG/ML DISP.SYRIN ONE (21:01)
[2020-06-30 21:05] LABS: BASOPHILS % (AUTO) 0.5 % (0.0-2.0); EOSINOPHILS % (AUTO) 1.2 % (0.0-6.0); HEMATOCRIT 35 % (39-51); HEMOGLOBIN 11.9 g/dL (13.5-17.5); LYMPHOCYTES # (AUTO) 1.3 /CMM (0.8-4.8); LYMPHOCYTES % (AUTO) 22.6 % (20.0-44.0); MEAN CORPUSCULAR HGB CONC 34 g/dl (31.0-36.0); MEAN CORPUSCULAR VOLUME 86 fL (80-96); MONOCYTES # (AUTO) 0.4 /CMM (0.1-1.30); MONOCYTES % (AUTO) 6.4 % (2.0-12.0); NEUTROPHILS # (AUTO) 3.8 /CMM (1.8-8.9); NEUTROPHILS % (AUTO) 69.3 % (43.0-81.0); PLATELET COUNT (AUTO) 120 /CMM (150-450); RED BLOOD CELL COUNT(AUTO) 4.09 MIL/uL (4.5-6.0); WHITE BLOOD COUNT (AUTO) 5.5 K/uL (4.3-11.0)
--- NOTE | 2020-06-30 21:15 | NUR ---
PT TO CT
[2020-06-30 21:19] LABS: ALBUMIN 3.8 g/dL (3.4-5.0); BILIRUBIN,DIRECT 0.2 mg/dL (0.0-0.2); BILIRUBIN,TOTAL 1.5 mg/dL (0.2-1.0); CALCIUM, SERUM 8.8 mg/dL (8.5-10.1); CREATININE 2.3 mg/dL (0.6-1.3); POTASSIUM 4.2 mmol/L (3.5-5.1); TOTAL PROTEIN, SERUM 8.5 g/dL (6.4-8.2)
[2020-06-30 21:43] LABS: APPEARANCE,URINE Clear (CLEAR); BILIRUBIN,URINE Negative (NEGATIVE); BLOOD, URINE Trace-intact Ery/uL (NEGATIVE); COLOR,URINE Yellow (YELLOW); KETONES,URINE Negative (NEGATIVE); LEUKOCYTE ESTERASE ,URINE Negative (NEGATIVE); NITRITE, URINE Negative (NEGATIVE); PROTEIN,URINE Negative (NEGATIVE); UGLUCOSE >=1000 mg/dL (NEGATIVE); UROBILINOGEN,URINE 0.2 EU/dL (0.2)
[2020-06-30] MEDS ORDERED: INSULIN REGULAR, HUMAN 100 UNIT/ML 10 ML VIAL ONE (21:46)
[2020-06-30 21:59] LABS: BACTERIA,URINE None seen /HPF (None Seen); SQUAMOUS EPITHELIAL CELL,UR Few /HPF (None Seen); WBC,URINE 0-2 /HPF (0-3)
[2020-06-30] MEDS ORDERED: INSULIN REGULAR, HUMAN 100 UNIT in IV NS 0.9% 99 ML IV PRN ×2 (22:00)
[2020-06-30 22:20] LABS: ABG BASE EXCESS -4.1 mmol/L; ABG OXYGEN SATURATION 95.5 % (92.0-98.5); ABG PCO2 41.4 mmHg (35.0-45.0); ABG PH 7.333 (7.350-7.450); ABG PO2 89.3 mmHg (75.0-100.0); AaDO2 10.9 mmHg; COHb 0.5 % (0.5-1.5); MetHb 0.5 % (0.0-1.5); O2Hb 94.5 % (94.0-97.0); SITE, ABG Right Radial; VENT MODE, BG Room Air
[2020-06-30] MEDS ORDERED: MORPHINE SULFATE INJ 2 MG/ML DISP.SYRIN IV PRN (23:00)
[2020-06-30] MEDS ORDERED: ONDANSETRON HCL/PF 4 MG/2 ML VIAL IVP PRN (23:00)
[2020-06-30] MEDS ORDERED: MAG HYDROX/AL HYDROX/SIMETH 30 ML UDC PO PRN (23:00)
[2020-06-30] MEDS ORDERED: TEMAZEPAM 15 MG CAPSULE PO PRN (23:00)
[2020-06-30] MEDS ORDERED: ACETAMINOPHEN 325 MG TABLET PO PRN (23:00)
[2020-06-30] MEDS ORDERED: MAGNESIUM HYDROXIDE 30 ML UDC PO PRN (23:00)
[2020-06-30] MEDS ORDERED: DEXTROSE 50%-WATER 50 ML DISP.SYRIN IV PRN (23:00)
[2020-06-30] MEDS ORDERED: HYDROCODONE/APAP 5/325MG 1 EACH TABLET PO PRN (23:00)
[2020-06-30] MEDS ORDERED: Z GUARD REMEDY 2 OZ OINT TP PRN (23:00)
--- NOTE | 2020-06-30 23:12 | NUR ---
BED ASSIGNMENT 326-2
--- NOTE | 2020-07-01 00:08 | NUR ---
report given to destiney rn for armando; pt will be transportd to 3rd floor
--- NOTE | 2020-07-01 00:13 | NUR ---
PT TRANSPORTED TO 3RD FLOOR
--- NOTE | 2020-07-01 00:45 | NUR ---
MS RN NOTES ADMITTED PATIENT, TRANSPORTED VIA GURNEY FROM ER. ORIENTED TO ROOM AND THE USE OF CALL LIGHT. REPOSITIONED FOR COMFORT. INITIAL ASSESSMENT AND ADMISSION PROCESS INITIATED. NOTED TWO OPEN WOUND SKIN ON BILATERAL PLANTAR FEET. IV ACCESS ON HIS LEFT FOREARM G#20 INTACT AND PATENT. DENIES PAIN OR DISCOMFORT AT THIS TIME. ALL NEEDS ANTICIPATED. WILL CONTINUE TO MONITOR ACCORDINGLY.
[2020-07-01 01:26] VITALS: BP 137/94
[2020-07-01] MEDS: IV NS 0.9% 1,000 ML IV PRN ×3 (01:36→19:58)
[2020-07-01 01:45] VITALS: BP 137/94
--- NOTE | 2020-07-01 06:56 | NUR ---
MS RN NOTES ALL NEEDS ATTENDED AND MET. ABLE TO REST AND SLEPT AT INTERVALS, KEPT CLEAN WARM AND COMFORTABLE. DENIES ANY PAIN OR DISCOMFORT AT THIS TIME. SAFETY MEASURES IN PLACE, ASPIRATION PRECAUTION EMPHASIZED, ALL NEEDS ANTICIPATED. WILL ENDORSE TO AM NURSE FOR CONTINUITY OF CARE.
[2020-07-01 07:00] LABS: BASOPHILS % (AUTO) 0.7 % (0.0-2.0); EOSINOPHILS % (AUTO) 1.9 % (0.0-6.0); HEMATOCRIT 34 % (39-51); HEMOGLOBIN 11.4 g/dL (13.5-17.5); LYMPHOCYTES # (AUTO) 1.9 /CMM (0.8-4.8); LYMPHOCYTES % (AUTO) 41.6 % (20.0-44.0); MEAN CORPUSCULAR HGB CONC 34 g/dl (31.0-36.0); MEAN CORPUSCULAR VOLUME 84 fL (80-96); MONOCYTES # (AUTO) 0.2 /CMM (0.1-1.30); MONOCYTES % (AUTO) 5.2 % (2.0-12.0); NEUTROPHILS # (AUTO) 2.3 /CMM (1.8-8.9); NEUTROPHILS % (AUTO) 50.6 % (43.0-81.0); PLATELET COUNT (AUTO) 100 /CMM (150-450); RED BLOOD CELL COUNT(AUTO) 4.01 MIL/uL (4.5-6.0); WHITE BLOOD COUNT (AUTO) 4.5 K/uL (4.3-11.0)
[2020-07-01 07:13] LABS: CALCIUM, SERUM 8.6 mg/dL (8.5-10.1); CREATININE 1.3 mg/dL (0.6-1.3); MAGNESIUM 1.7 mg/dL (1.8-2.4); PHOSPHORUS 3.8 mg/dL (2.5-4.9); POTASSIUM 3.7 mmol/L (3.5-5.1)
[2020-07-01 07:22] LABS: THYROID STIMULATING HORMONE 2.182 uIU/mL (0.358-3.74)
--- NOTE | 2020-07-01 07:30 | NUR ---
MS/RN OPENING NOTES Patient resting in bed, A&O x 4, legally blind on left eye. Breathing even and non-labored on RA, no SOB noted. No cardiac distress noted. No complaints of pain/discomfort reported. IV access located on L FA #20, running NS @ 125 ml/hr. No s/s of infiltration/infection/bleeding on the site. Sensation from all peripheral extremities intact. Fall precautions maintained. Will continue with current plan of care.
[2020-07-01] MEDS: BLOOD SUGAR DIAGNOSTIC 1 EACH STRIP VI SCH ×4 (07:37→21:31)
[2020-07-01] MEDS: INSULIN REGULAR, HUMAN 100 UNIT/ML 3 ML VIAL SQ PRN ×3 (07:57→17:57)
[2020-07-01 08:00] VITALS: BP 138/90
[2020-07-01] MEDS: PANTOPRAZOLE 40 MG TABLET.DR PO SCH (08:13)
[2020-07-01] MEDS: Magnesium 1GM/D5W 100ML PREMIX 100 ML IV SCH ×2 (09:50→11:00)
--- NOTE | 2020-07-01 10:16 | NUR ---
WOUND CARE CONSULT: PT PRESENTS WITH BILATERAL PLANTAR ULCERS, PRESENT ON ADMISSION. RECOMMEND DPM CONSULT. DR PAYNE NOTIFIED OF CONSULT REQUEST. RECOMMENDATIONS MADE FOR SKIN PROTECTION. WILL SEE PRN. FORTE IN AGREEMENT WITH PLAN OF CARE. Addendum: 07/01/20 at 1017 by JOSELIN DYER WNDNU Amended: Links added.
[2020-07-01] MEDS: ASPIRIN 81 MG TAB.CHEW PO SCH (12:48)
[2020-07-01] MEDS: ESCITALOPRAM OXALATE (10 MG) 10 MG TABLET PO SCH (12:48)
[2020-07-01] MEDS: ATORVASTATIN 40 MG TABLET PO SCH (12:48)
[2020-07-01] MEDS: LISINOPRIL (5MG) 5 MG TABLET PO SCH (12:49)
[2020-07-01] MEDS: glipiZIDE 5 MG TABLET PO SCH ×2 (13:20→17:52)
[2020-07-01 16:00] VITALS: BP 122/77
[2020-07-01] MEDS: METFORMIN 500 MG TABLET PO SCH (17:48)
--- NOTE | 2020-07-01 19:45 | NUR ---
MS/RN CLOSING NOTES Patient resting in bed, A&O x 4. Denies any pain/discomfort at this time. Breathing even and non-labored on RA, no SOB noted. No cardiac distress noted. No complaints of pain/discomfort reported. IV access located on L FA #20, running NS @ 125 ml/hr. No s/s of infiltration/infection/bleeding on the site. Sensation from all peripheral extremities intact. Dressings on L and R plantar foot are clean, dry, and intact. BS trend going down. Fall precautions maintained. Will endorse to director of food and nutrition services nurse.
[2020-07-01 20:00] VITALS: BP 116/77
--- NOTE | 2020-07-01 20:00 | NUR ---
MS RN NOTES RECEIVED PATIENT IN BED, AWAKE, CONSCIOUS, COOPERATIVE, BREATHING AT ROOM AIR, UNLABORED BREATHING, NO SIGNS OF RESPIRATORY DISTRESS, LFA #20G NS @125ML/HR, NO COMPLAINTS OF PAIN, SIDE RAILS UP.
[2020-07-01] MEDS: INSULIN GLARGINE, 100 UNIT/ML CARTRIDGE SQ SCH (21:37)
[2020-07-01] MEDS: *INSULIN REGULAR(HUMULIN R)HUM 100 UNIT/ML VIAL SQ PRN (21:53)
[2020-07-02] MEDS: IV NS 0.9% 1,000 ML IV PRN ×2 (03:32→22:00)
[2020-07-02] MEDS: BLOOD SUGAR DIAGNOSTIC 1 EACH STRIP VI SCH ×4 (06:30→22:05)
[2020-07-02] MEDS: INSULIN REGULAR, HUMAN 100 UNIT/ML 3 ML VIAL SQ PRN ×3 (06:40→17:15)
--- NOTE | 2020-07-02 06:49 | NUR ---
MS RN CLOSING NOTES ENDORSED PATIENT IN BED, AWAKE, CONSCIOUS, COOPERATIVE, BREATHING AT ROOM AIR, UNLABORED BREATHING, NO SIGNS OF RESPIRATORY DISTRESS, LFA #20G NS @125ML/HR, NO REDNESS OR INFILTRATION NOTED, NO COMPLAINTS OF PAIN, DUE MEDS GIVEN, SIDE RAILS UP FOR SAFETY.
[2020-07-02 07:03] LABS: BASOPHILS % (AUTO) 0.6 % (0.0-2.0); HEMATOCRIT 36 % (39-51); HEMOGLOBIN 12.2 g/dL (13.5-17.5); LYMPHOCYTES # (AUTO) 1.4 /CMM (0.8-4.8); LYMPHOCYTES % (AUTO) 32.4 % (20.0-44.0); MEAN CORPUSCULAR HGB CONC 34 g/dl (31.0-36.0); MEAN CORPUSCULAR VOLUME 84 fL (80-96); MONOCYTES # (AUTO) 0.2 /CMM (0.1-1.30); MONOCYTES % (AUTO) 5.7 % (2.0-12.0); NEUTROPHILS # (AUTO) 2.6 /CMM (1.8-8.9); NEUTROPHILS % (AUTO) 59.3 % (43.0-81.0); PLATELET COUNT (AUTO) 101 /CMM (150-450); RED BLOOD CELL COUNT(AUTO) 4.28 MIL/uL (4.5-6.0); WHITE BLOOD COUNT (AUTO) 4.4 K/uL (4.3-11.0)
--- NOTE | 2020-07-02 07:27 | NUR ---
RN OPENING NOTE Patient is resting in bed, A/O x4, showing no signs of acute distress or SOB, stable on RA. Patient has no complaints of pain at this time. IV line in the LFA#20g is clean and intact running NS @ 125mls/hour. Bed is in lowest position, side rails x3 in upright position, call light is within reach, fall safety and aspiration precautions enforced. Will continue with plan of care.
[2020-07-02 07:43] LABS: BILIRUBIN,TOTAL 1.4 mg/dL (0.2-1.0); CALCIUM, SERUM 8.7 mg/dL (8.5-10.1); MAGNESIUM 2.1 mg/dL (1.8-2.4); PHOSPHORUS 2.7 mg/dL (2.5-4.9); TOTAL PROTEIN, SERUM 7.2 g/dL (6.4-8.2)
[2020-07-02 08:00] VITALS: BP 137/93
[2020-07-02] MEDS: ATORVASTATIN 40 MG TABLET PO SCH (08:24)
[2020-07-02] MEDS: METFORMIN 500 MG TABLET PO SCH ×2 (08:24→16:16)
[2020-07-02] MEDS: PANTOPRAZOLE 40 MG TABLET.DR PO SCH (08:25)
[2020-07-02] MEDS: glipiZIDE 5 MG TABLET PO SCH ×2 (08:25→16:16)
[2020-07-02] MEDS: ESCITALOPRAM OXALATE (10 MG) 10 MG TABLET PO SCH (08:25)
[2020-07-02] MEDS: ASPIRIN 81 MG TAB.CHEW PO SCH (08:25)
[2020-07-02] MEDS: HYDROGEL DRESSING 90 GM TUBE TP SCH (08:26)
[2020-07-02] MEDS: LISINOPRIL (5MG) 5 MG TABLET PO SCH (08:26)
[2020-07-02] MEDS: THERAHONEY GEL 1.5 OZ TUBE TP SCH (15:14)
[2020-07-02 16:19] VITALS: BP 130/82
--- NOTE | 2020-07-02 18:51 | NUR ---
RN CLOSING NOTE Patient is resting in bed, A/O x4, showing no signs of acute distress or SOB, stable on RA. IV line in the LFA#20g is clean and intact running NS @ 125mls/hour. All patient needs met, all due medications given, patient kept clean and dry throughout shift. Bed is in lowest position, side rails x3 in upright position, call light is within reach, fall safety and aspiration precautions enforced. Will endorse to awake overnight monitor.
--- NOTE | 2020-07-02 19:30 | NUR ---
MS RN NOTES RECEIVED ON BED A/O X4,LEGALLY BLIND,BREATHING REGULAR,NOT IN ANY FORM OF DISTRESS.IVF NS AT 125ML/HR RATE IN PROGRESS ON LFA VIA IV PUMP.SITE PATENT.FALL PRECAUTION OBSERVED,BED ALARM,BED ON LOWEST POSITION AND LOCKED.CALL LIGHT IN REACH,NEEDS ANTICIPATED.
[2020-07-02 20:00] VITALS: BP 131/78
--- NOTE | 2020-07-02 22:00 | NUR ---
MS RN NOTES ACCU-CHECK BLOOD SUGAR CHECK 133,COVERED WITH HUMULIN R 2UNITS PER SLIDING SCALE,ALONG WITH LANTUS 24 UNITS SCHEDULED.OFFERED MIDNIGHT SNACKS,PATIENT REFUSED.
[2020-07-02] MEDS: *INSULIN REGULAR(HUMULIN R)HUM 100 UNIT/ML VIAL SQ PRN (22:13)
[2020-07-02] MEDS: INSULIN GLARGINE, 100 UNIT/ML CARTRIDGE SQ SCH (22:14)
[2020-07-03] MEDS: BLOOD SUGAR DIAGNOSTIC 1 EACH STRIP VI SCH ×4 (05:31→22:10)
--- NOTE | 2020-07-03 05:33 | NUR ---
MS RN NOTES ACCU-CHECK BLOOD SUGAR CHECK 127,NO INSULIN COVERAGE.
--- NOTE | 2020-07-03 06:32 | NUR ---
MS RN NOTES SLEPT WELL AT NIGHT,IVF INFUSING WELL VIA IV PUMP.BLOOD SIGAR WITH IN NORMAL LIMITS.NO S/S OF HYPO/HYPERGLYCEMIA.CALL LIGHT IN REACH,NEEDS ATTENDED.
--- NOTE | 2020-07-03 07:10 | NUR ---
RN OPENING NOTE RECEIVED PATIENT IN BED RESTING. A/O X4,LEGALLY BLIND,BREATHING REGULAR. NOT IN ANY FORM OF DISTRESS. DENIED PAIN OR DISCOMFORT AT THIS TIME. IV ACCESS INTACT AND PATENT.FALL PRECAUTION OBSERVED,BED ALARM,BED ON LOWEST POSITION AND LOCKED.CALL LIGHT IN REACH, SEMIFOWLERS. WILL CONT TO MONIOTR ACCORDINGLY
[2020-07-03 07:37] LABS: BASOPHILS % (AUTO) 0.6 % (0.0-2.0); EOSINOPHILS % (AUTO) 1.5 % (0.0-6.0); HEMATOCRIT 32 % (39-51); HEMOGLOBIN 10.7 g/dL (13.5-17.5); LYMPHOCYTES # (AUTO) 1.7 /CMM (0.8-4.8); LYMPHOCYTES % (AUTO) 33.3 % (20.0-44.0); MEAN CORPUSCULAR HGB CONC 34 g/dl (31.0-36.0); MEAN CORPUSCULAR VOLUME 84 fL (80-96); MONOCYTES # (AUTO) 0.3 /CMM (0.1-1.30); MONOCYTES % (AUTO) 6.5 % (2.0-12.0); NEUTROPHILS # (AUTO) 2.9 /CMM (1.8-8.9); NEUTROPHILS % (AUTO) 58.1 % (43.0-81.0); PLATELET COUNT (AUTO) 92 /CMM (150-450); RED BLOOD CELL COUNT(AUTO) 3.78 MIL/uL (4.5-6.0)
[2020-07-03 07:53] LABS: CALCIUM, SERUM 8.4 mg/dL (8.5-10.1); CREATININE 0.9 mg/dL (0.6-1.3); MAGNESIUM 1.5 mg/dL (1.8-2.4); PHOSPHORUS 2.4 mg/dL (2.5-4.9); POTASSIUM 4.1 mmol/L (3.5-5.1)
[2020-07-03 08:00] VITALS: BP 129/83
[2020-07-03] MEDS: glipiZIDE 5 MG TABLET PO SCH ×2 (08:56→17:17)
[2020-07-03] MEDS: ESCITALOPRAM OXALATE (10 MG) 10 MG TABLET PO SCH (08:57)
[2020-07-03] MEDS: LISINOPRIL (5MG) 5 MG TABLET PO SCH (08:57)
[2020-07-03] MEDS: METFORMIN 500 MG TABLET PO SCH ×2 (08:57→17:16)
[2020-07-03] MEDS: ASPIRIN 81 MG TAB.CHEW PO SCH (08:57)
[2020-07-03] MEDS: ATORVASTATIN 40 MG TABLET PO SCH (08:58)
[2020-07-03] MEDS: PANTOPRAZOLE 40 MG TABLET.DR PO SCH (08:58)
[2020-07-03] MEDS: HYDROGEL DRESSING 90 GM TUBE TP SCH (09:12)
[2020-07-03] MEDS: THERAHONEY GEL 1.5 OZ TUBE TP SCH (09:12)
[2020-07-03 10:07] LABS: PTH, INTACT 48 pg/mL (15-65)
[2020-07-03] MEDS: Magnesium 1GM/D5W 100ML PREMIX 100 ML IV SCH ×2 (10:30→11:40)
[2020-07-03] MEDS ORDERED: K PHOS NEUTRAL 250 MG TABLET PO ONE (11:30)
[2020-07-03] MEDS: INSULIN REGULAR, HUMAN 100 UNIT/ML 3 ML VIAL SQ PRN (12:35)
[2020-07-03 16:00] VITALS: BP 130/80
--- NOTE | 2020-07-03 19:12 | NUR ---
RN CLOSING NOTES PATIENT IN STABLE CONDITION. ALL NEED ATTENDED AND PROVIDED. ALL DUE MEDS GIVEN ORDERED. WOUND CARE RENDERED. KEPT PATIENT SAFE AND COMFORTABLE. BED IN LOW/LOCKED POSITION. SIDERAILS UP, HOB ELEVATED. ENDORSED ACCORDINGLY.
--- NOTE | 2020-07-03 19:30 | NUR ---
MS RN NOTES RECEIVED ON SLEEPING,AROUSABLE TO VERBAL STIMULI,BREATHING NORMAL,KARLEE PAIN DISCOMFORTS AT THE MOMENT.SALINE LOCK LEFT FOREARM INTACT AND PATENT.CALL LIGHT IN REACH,NEEDS ANTICIPATED.
[2020-07-03 20:00] VITALS: BP 127/75
[2020-07-03 20:45] VITALS: BP 99/127
--- NOTE | 2020-07-03 22:00 | NUR ---
MS RN NOTES BLOOD SUGAR CHECK 191,COVERED WITH HUMULIN 3UNITS PER SLIDING SCALE.LANTUS 24 UNITS GIVEN SCHEDULED.SNACKS AT BEDSIDE.
[2020-07-03] MEDS: *INSULIN REGULAR(HUMULIN R)HUM 100 UNIT/ML VIAL SQ PRN (22:16)
[2020-07-03] MEDS: INSULIN GLARGINE, 100 UNIT/ML CARTRIDGE SQ SCH (22:18)
[2020-07-04] MEDS: BLOOD SUGAR DIAGNOSTIC 1 EACH STRIP VI SCH ×4 (05:36→21:02)
[2020-07-04] MEDS: *INSULIN REGULAR(HUMULIN R)HUM 100 UNIT/ML VIAL SQ PRN ×2 (05:42→21:01)
--- NOTE | 2020-07-04 06:29 | NUR ---
MS RN NOTES ON BED,SLEPT WELL,DENIES DISCOMFORTS,BLOOD SUGAR CONTROLLED.POSSIBLE DISCHARGE TODAY.IN NO ACUTE DISTRESS.WILL ENDORSE TO DAY NURSE FOR [facility]
[2020-07-04 07:25] LABS: CREATININE 1.2 mg/dL (0.6-1.3); MAGNESIUM 1.8 mg/dL (1.8-2.4); PHOSPHORUS 3.1 mg/dL (2.5-4.9); POTASSIUM 3.7 mmol/L (3.5-5.1)
--- NOTE | 2020-07-04 07:30 | NUR ---
RN OPENING NOTES PATIENT IN BED RESTING. NOT IN ANY FORM OF DISTRESS. NO SOB. DENIED PAIN OR DISCOMFORT AT THIS TIME. IV ACCESS INTACT AND PATENT. KEPT PATIENT SAFE AND COMFORTABLE. BED IN LOW/LOCKED POSITION. SIDERAILS UPX2, BED ALARM ON. SEMIFOWLERS, CALL LIGHT IN REACH. WILL CONT TO MONITOR ACCORDINGLY.
[2020-07-04 08:36] VITALS: BP 144/87
[2020-07-04] MEDS: ATORVASTATIN 40 MG TABLET PO SCH (08:39)
[2020-07-04] MEDS: METFORMIN 500 MG TABLET PO SCH ×2 (08:39→18:04)
[2020-07-04] MEDS: ESCITALOPRAM OXALATE (10 MG) 10 MG TABLET PO SCH (08:39)
[2020-07-04] MEDS: glipiZIDE 5 MG TABLET PO SCH ×2 (08:39→18:03)
[2020-07-04] MEDS: ASPIRIN 81 MG TAB.CHEW PO SCH (08:40)
[2020-07-04] MEDS: LISINOPRIL (5MG) 5 MG TABLET PO SCH (08:40)
[2020-07-04] MEDS: PANTOPRAZOLE 40 MG TABLET.DR PO SCH (08:40)
[2020-07-04] MEDS: THERAHONEY GEL 1.5 OZ TUBE TP SCH (08:45)
[2020-07-04] MEDS: HYDROGEL DRESSING 90 GM TUBE TP SCH (08:45)
[2020-07-04 16:08] VITALS: BP 124/78
--- NOTE | 2020-07-04 19:44 | NUR ---
RN NOTES ALERT AND ORIENTED X4, ROOM AIR, CALM, LEGALLY BLIND, WITH COGNITIVE DELAY, ABLE TO VERBALIZE NEEDS, FALL RISK, BED ALARM, WILL CONTINUE TO MONITOR.
[2020-07-04 20:00] VITALS: BP 126/78
[2020-07-04] MEDS: INSULIN GLARGINE, 100 UNIT/ML CARTRIDGE SQ SCH (21:02)
--- NOTE | 2020-07-05 06:29 | NUR ---
RN NOTES ALERT AND ORIENTED X4, ROOM AIR, DENIES PAIN AT THIS TIME, LEGALLY BLIND TO LEFT EYE, AMBULATES WITH ASSIST, BILATERAL PLANTAR DIABETIC WOUND, CONTINUE WOUND CARE, ON MODERATE SLIDING SCALE, SEEN BY PODIATRY, NEPHRO FOLLOWING. NO AM LABS, CONTINUE WITH PLAN OF CARE.
[2020-07-05] MEDS: INSULIN REGULAR, HUMAN 100 UNIT/ML 3 ML VIAL SQ PRN ×3 (06:47→17:22)
[2020-07-05] MEDS: BLOOD SUGAR DIAGNOSTIC 1 EACH STRIP VI SCH ×4 (06:47→21:54)
--- NOTE | 2020-07-05 07:30 | NUR ---
ms rn received on bed,awake,alert,oriented x4,not in any form of distress, respirations even and unlabored,no sob noted w/ adequate saturation,abdomen soft,positive bowel sounds,denies pain at this time, will contonue to monitor patient.
[2020-07-05] MEDS: glipiZIDE 5 MG TABLET PO SCH ×2 (08:19→17:18)
[2020-07-05] MEDS: METFORMIN 500 MG TABLET PO SCH ×2 (08:19→17:18)
[2020-07-05] MEDS: PANTOPRAZOLE 40 MG TABLET.DR PO SCH (08:22)
[2020-07-05] MEDS: ASPIRIN 81 MG TAB.CHEW PO SCH (08:54)
[2020-07-05] MEDS: ATORVASTATIN 40 MG TABLET PO SCH (08:54)
[2020-07-05] MEDS: ESCITALOPRAM OXALATE (10 MG) 10 MG TABLET PO SCH (08:55)
[2020-07-05] MEDS: LISINOPRIL (5MG) 5 MG TABLET PO SCH (08:56)
--- NOTE | 2020-07-05 09:00 | NUR ---
ms rn due meds given, tolerated well, metformin and lisinopril held per md notes, will monitor patient.
--- NOTE | 2020-07-05 15:53 | NUR ---
ms rn on bed,no distress noted.
[2020-07-05] MEDS: THERAHONEY GEL 1.5 OZ TUBE TP SCH (17:20)
[2020-07-05] MEDS: HYDROGEL DRESSING 90 GM TUBE TP SCH (17:20)
--- NOTE | 2020-07-05 18:21 | NUR ---
ms rn on bed,no distress noted.
--- NOTE | 2020-07-05 19:28 | NUR ---
MS RN: RECEIVED PATIENT Patient in bed, awake. Left eye blind per report. Patient is A/O x4. On room air. Bilateral feet dressing C/D/I denies pain. Fall; Skin precaution maintained.
[2020-07-05 20:00] VITALS: BP 117/72
[2020-07-05] MEDS: *INSULIN REGULAR(HUMULIN R)HUM 100 UNIT/ML VIAL SQ PRN (21:57)
[2020-07-05] MEDS: INSULIN GLARGINE, 100 UNIT/ML CARTRIDGE SQ SCH (22:03)
[2020-07-06 06:38] LABS: BASOPHILS % (AUTO) 0.6 % (0.0-2.0); EOSINOPHILS % (AUTO) 1.4 % (0.0-6.0); HEMATOCRIT 33 % (39-51); HEMOGLOBIN 11.2 g/dL (13.5-17.5); LYMPHOCYTES # (AUTO) 1.8 /CMM (0.8-4.8); LYMPHOCYTES % (AUTO) 33.9 % (20.0-44.0); MEAN CORPUSCULAR HGB CONC 34 g/dl (31.0-36.0); MEAN CORPUSCULAR VOLUME 85 fL (80-96); MONOCYTES # (AUTO) 0.3 /CMM (0.1-1.30); MONOCYTES % (AUTO) 6.4 % (2.0-12.0); NEUTROPHILS % (AUTO) 57.7 % (43.0-81.0); PLATELET COUNT (AUTO) 107 /CMM (150-450); RED BLOOD CELL COUNT(AUTO) 3.88 MIL/uL (4.5-6.0); WHITE BLOOD COUNT (AUTO) 5.3 K/uL (4.3-11.0)
[2020-07-06] MEDS: BLOOD SUGAR DIAGNOSTIC 1 EACH STRIP VI SCH ×4 (06:45→21:31)
[2020-07-06] MEDS: INSULIN REGULAR, HUMAN 100 UNIT/ML 3 ML VIAL SQ PRN ×3 (06:46→16:42)
[2020-07-06 07:02] LABS: BILIRUBIN,TOTAL 1.7 mg/dL (0.2-1.0); CALCIUM, SERUM 8.6 mg/dL (8.5-10.1); CREATININE 1.3 mg/dL (0.6-1.3); MAGNESIUM 1.5 mg/dL (1.8-2.4); PHOSPHORUS 3.2 mg/dL (2.5-4.9); POTASSIUM 3.7 mmol/L (3.5-5.1); TOTAL PROTEIN, SERUM 8.4 g/dL (6.4-8.2)
--- NOTE | 2020-07-06 07:30 | NUR ---
RN Opening Note Received patient in bed, AO x 4, left eye blind, able to responds all stimuli. Pt denies pain or any discomfort. Respiratory even and unlabored on room air, skin is warm to touch, keep clean/dry, intact IV site with SL. Keep low position of the bed with elevated HOB for ensure airway and bed in locked. Call light within reach, will continue to monitor.
[2020-07-06] MEDS: PANTOPRAZOLE 40 MG TABLET.DR PO SCH (07:36)
--- NOTE | 2020-07-06 07:39 | NUR ---
MS RN: END OF SHIFT REPORT Patient in bed, awake, A/O x4. Left eye blindness. O2 sat in mid 90's. Blood glucose controlled with long acting insulin, continue with Accu check as planned. B/L feet wound, dressing C/D/I Denies pain. Fall precaution maintained. Endorsed to MARILYN Jorge.
[2020-07-06] MEDS: ESCITALOPRAM OXALATE (10 MG) 10 MG TABLET PO SCH (09:00)
[2020-07-06] MEDS: ASPIRIN 81 MG TAB.CHEW PO SCH (09:01)
[2020-07-06] MEDS: ATORVASTATIN 40 MG TABLET PO SCH (09:01)
[2020-07-06] MEDS: METFORMIN 500 MG TABLET PO SCH ×2 (09:04→16:39)
[2020-07-06] MEDS: glipiZIDE 5 MG TABLET PO SCH ×2 (09:04→16:40)
[2020-07-06] MEDS: LISINOPRIL (5MG) 5 MG TABLET PO SCH (09:04)
[2020-07-06] MEDS: HYDROGEL DRESSING 90 GM TUBE TP SCH (09:05)
[2020-07-06] MEDS: THERAHONEY GEL 1.5 OZ TUBE TP SCH (09:06)
[2020-07-06] MEDS: Magnesium 1GM/D5W 100ML PREMIX 100 ML IV SCH ×2 (10:44→12:28)
--- NOTE | 2020-07-06 12:30 | NUR ---
Patient needs regular insulin, spoke with pharmacy who will deriver.
--- NOTE | 2020-07-06 18:18 | NUR ---
RN Closing Note Patient in bed sleeping comfortably, does no appears pain or distress. Respiratory even and unlabored on room air, O2sat 99%, no distress observed. Skin is warm to touch, kept clean/dry, intact IV site with SL, changed dressing on feet/plantar wound. Keep bed in locked with HOB for ensure airway and aspiration precaution. Call light within reach, all needs met. Will endorse night patrol inspector.
--- NOTE | 2020-07-06 19:40 | NUR ---
RN OPENING NOTE RECEIVED PATIENT IN BED RESTING. A/O X4,LEGALLY BLIND,BREATHING REGULAR. NO SOB. NO RESP DISTRESS. NOT IN ANY FORM OF DISTRESS. DENIED PAIN OR DISCOMFORT AT THIS TIME. IV ACCESS INTACT AND PATENT.FALL PRECAUTION OBSERVED,BED ALARM,BED ON LOWEST POSITION AND LOCKED.CALL LIGHT IN REACH, SEMIFOWLERS. WILL CONT TO MONIOTR ACCORDINGLY
[2020-07-06 20:00] VITALS: BP 111/73
[2020-07-06 20:31] VITALS: BP 111/73
[2020-07-06] MEDS: INSULIN GLARGINE, 100 UNIT/ML CARTRIDGE SQ SCH (21:36)
[2020-07-06] MEDS: *INSULIN REGULAR(HUMULIN R)HUM 100 UNIT/ML VIAL SQ PRN (21:38)
[2020-07-07 02:33] LABS: APPEARANCE,URINE CLEAR (CLEAR); BILIRUBIN,URINE NEGATIVE (NEGATIVE); BLOOD, URINE NEGATIVE Ery/uL (NEGATIVE); COLOR,URINE YELLOW (YELLOW); KETONES,URINE NEGATIVE (NEGATIVE); LEUKOCYTE ESTERASE ,URINE NEGATIVE (NEGATIVE); NITRITE, URINE NEGATIVE (NEGATIVE); PROTEIN,URINE NEGATIVE (NEGATIVE); UGLUCOSE 500 MG/DL mg/dL (NEGATIVE); UROBILINOGEN,URINE 0.2 EU/dL (0.2)
[2020-07-07 02:35] LABS: CREATININE, URINE 65.8 MG/DL (30.0-125.0); URINE TOTAL PROTEIN 11.2 mg/dL (0-11.9)
[2020-07-07 03:50] LABS: EOSINOPHIL,URINE None Seen
[2020-07-07 06:11] LABS: *SPE A/G RATIO 0.7 (0.7-1.7); *SPE ALBUMIN 2.7 g/dL (2.9-4.4); *SPE ALPHA-1-GLOBULIN 0.3 g/dL (0.0-0.4); *SPE ALPHA-2-GLOBULIN 1.1 g/dL (0.4-1.0); *SPE BETA GLOBULIN 1.2 g/dL (0.7-1.3); *SPE GLOBULIN, TOTAL 3.8 g/dL (2.2-3.9); *SPE M-SPIKE Not Observed g/dL (Not Observed); *SPEGAMMA GLOBULIN 1.2 g/dL (0.4-1.8)
--- NOTE | 2020-07-07 06:36 | NUR ---
RN Closing Note Patient in bed sleeping comfortably, does no appears pain or distress. Respiratory even and unlabored on room air, O2sat 99%, no distress observed. Skin is warm to touch, kept clean/dry, intact IV site with SL, changed dressing on feet/plantar wound and pictures taken in the chart. Keep bed in locked with HOB for ensure airway and aspiration precaution. Call light within reach, all needs met. Will endorse security shift supervisor.
[2020-07-07] MEDS: BLOOD SUGAR DIAGNOSTIC 1 EACH STRIP VI SCH ×3 (06:40→17:30)
[2020-07-07] MEDS: INSULIN REGULAR, HUMAN 100 UNIT/ML 3 ML VIAL SQ PRN ×2 (06:41→11:41)
[2020-07-07 06:59] LABS: BASOPHILS % (AUTO) 0.7 % (0.0-2.0); HEMATOCRIT 34 % (39-51); HEMOGLOBIN 11.7 g/dL (13.5-17.5); LYMPHOCYTES % (AUTO) 20.7 % (20.0-44.0); MEAN CORPUSCULAR HGB CONC 34 g/dl (31.0-36.0); MEAN CORPUSCULAR VOLUME 84 fL (80-96); MONOCYTES # (AUTO) 0.3 /CMM (0.1-1.30); MONOCYTES % (AUTO) 5.9 % (2.0-12.0); NEUTROPHILS # (AUTO) 3.6 /CMM (1.8-8.9); NEUTROPHILS % (AUTO) 71.7 % (43.0-81.0); PLATELET COUNT (AUTO) 106 /CMM (150-450); RED BLOOD CELL COUNT(AUTO) 4.09 MIL/uL (4.5-6.0); WHITE BLOOD COUNT (AUTO) 5.1 K/uL (4.3-11.0)
--- NOTE | 2020-07-07 08:00 | NUR ---
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 reality orientation provided prn. no c/o pain or any discomfort. dressing to nicolle foot wound intact, clean, and dry. will continue to monitor.
[2020-07-07 08:23] LABS: ALBUMIN 3.2 g/dL (3.4-5.0); BILIRUBIN,TOTAL 1.9 mg/dL (0.2-1.0); CALCIUM, SERUM 8.6 mg/dL (8.5-10.1); CREATININE 1.2 mg/dL (0.6-1.3); MAGNESIUM 1.9 mg/dL (1.8-2.4); PHOSPHORUS 3.5 mg/dL (2.5-4.9); POTASSIUM 3.7 mmol/L (3.5-5.1); TOTAL PROTEIN, SERUM 7.2 g/dL (6.4-8.2)
[2020-07-07] MEDS: ESCITALOPRAM OXALATE (10 MG) 10 MG TABLET PO SCH (08:26)
[2020-07-07] MEDS: glipiZIDE 5 MG TABLET PO SCH ×2 (08:26→17:31)
[2020-07-07] MEDS: PANTOPRAZOLE 40 MG TABLET.DR PO SCH (08:26)
[2020-07-07] MEDS: ASPIRIN 81 MG TAB.CHEW PO SCH (08:26)
[2020-07-07] MEDS: ATORVASTATIN 40 MG TABLET PO SCH (08:26)
[2020-07-07 08:27] VITALS: BP 118/76
[2020-07-07] MEDS: METFORMIN 500 MG TABLET PO SCH ×2 (08:27→17:31)
[2020-07-07] MEDS: LISINOPRIL (5MG) 5 MG TABLET PO SCH (08:27)
[2020-07-07] MEDS: HYDROGEL DRESSING 90 GM TUBE TP SCH (08:28)
[2020-07-07] MEDS: THERAHONEY GEL 1.5 OZ TUBE TP SCH (08:30)
--- NOTE | 2020-07-07 08:45 | NUR ---
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 malik and plan to d'c pt home today, pt agrees and plan to discharge this afternoon.
--- NOTE | 2020-07-07 10:30 | NUR ---
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 order acknowledged. case management to follow up with home health arrangement. pt aware.
--- NOTE | 2020-07-07 14:00 | NUR ---
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 pt made aware.
--- NOTE | 2020-07-07 15:30 | NUR ---
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 pt made aware. wound care to nicolle foot wound done as ordered.
--- NOTE | 2020-07-07 16:30 | NUR ---
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 incontinent of bowel rendered, kept clean and dry.
--- NOTE | 2020-07-07 17:00 | NUR ---
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 pt verbalized understanding and home health to follow up with him at home for wound tx and p.t. eval. h/l removed with tip intact. awaiting for sister to come and pick him up.
--- NOTE | 2020-07-07 18:15 | NUR ---
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
== END 2020-07-07 18:15 | disposition home health service (06) | DRG 622 ==
LOC: ER 20:26 → MED 23:24
PROVIDERS: ADMIT Nurse Practitioner Acute Care; ATTEND Internal Medicine
PROC: 0JBR0ZZ Excision of Left Foot Subcutaneous Tissue and Fascia, Open Approach (ICD-10-PCS; principal; 2020-07-01)
PROC: 0JBQ0ZZ Excision of Right Foot Subcutaneous Tissue and Fascia, Open Approach (ICD-10-PCS; 2020-07-01)
DX: E11.65 Type 2 diabetes mellitus with hyperglycemia (principal); N17.0 Acute kidney failure with tubular necrosis; E87.1 Hypo-osmolality and hyponatremia; L97.428 Non-pressure chronic ulcer of left heel and midfoot with other specified severity; L97.418 Non-pressure chronic ulcer of right heel and midfoot with other specified severity; D64.9 Anemia, unspecified; D69.6 Thrombocytopenia, unspecified; E78.5 Hyperlipidemia, unspecified; E11.621 Type 2 diabetes mellitus with foot ulcer; E11.40 Type 2 diabetes mellitus with diabetic neuropathy, unspecified; E86.1 Hypovolemia; Z79.4 Long term (current) use of insulin; Z79.82 Long term (current) use of aspirin; F32.9 Major depressive disorder, single episode, unspecified; H54.8 Legal blindness, as defined in USA; Z91.14 Patient's other noncompliance with medication regimen; I10 Essential (primary) hypertension; Z79.84 Long term (current) use of oral hypoglycemic drugs
CPT/HCPCS: 36415; 36600; 71045-TC; 76705-TC; 80048-TC; 80053-TC; 80061-TC; 80076-TC; 81000-TC; 82010-TC; 82550-TC; 82570-TC; 82803-TC; 82962-TC; 83690-TC; 83735-TC; 83970; 84100-TC; 84155; 84155-TC; 84165; 84300-TC; 84443-TC; 85025-TC; 87081-TC; 97116-TC; A6248; A6253; A6403; G0378; J1815; J2270; J2405; J3475; J7030; J7050

== ENCOUNTER 2021-10-24 19:59 | Inpatient (IN) | payer MEDICARE, OTHER ==
[~2021-10-24] VITALS: Ht 188 cm; Wt 88.5 kg
--- NOTE | 2021-10-24 19:59 | NUR ---
BIBRA 860 C/O L AND R WRIST PAIN FROM A FALL GOING UP STAIRS FOLLOWING THE FALL PT STATED THAT HE WAS PUSHED FROM BEHIND AND FELL ON HIS L SIDE. PT STATED HIS PAIN WAS A 6/10 ON PS. BLOOD SUGAR WAS [address]. PT IS A&OX4 AND STABLE. VITALS ARE WITHIN NORMAL LIMITS. BREATHING IS REGULAR AND UNLABORED. PT WAS ATTACHED TO MONITOR. IV WAS ESTABLISHED 20G R AC AND CONVERTED TO A SALINE LOCK. LABS WERE DRAWN AND SENT TO LAB. WILL CONTINUE TO MONITOR.
--- NOTE | 2021-10-24 20:02 | NUR ---
DR ALEXIS IS AT BEDSIDE
--- NOTE | 2021-10-24 20:13 | NUR ---
BLOOD SUGAR WAS TAKEN; READING HIGH (ABOVE 600). DR ALEXIS WAS NOTIFIED. PT STATED HE TAKES BOTH PILLS AND INSULIN FOR HIS DIABETES BUT CANNOT RECALL THE NAME. PT DID NOT TAKE MEDICATION TODAY; BASELINE BLOOD SUGAR IS 300 AT HOME
--- NOTE | 2021-10-24 20:45 | NUR ---
URINE SPECIMEN COLLECTED AND SENT TO LAB.
--- NOTE | 2021-10-24 21:04 | NUR ---
X RAY AT BEDSIDE
[2021-10-24 21:16] LABS: BASOPHILS # (AUTO) 0.1 K/uL (0.0-0.2); BASOPHILS % (AUTO) 1.1 % (0.0-2.0); EOSINOPHILS % (AUTO) 7.9 % (0.0-6.0); HEMATOCRIT 36 % (39-51); HEMOGLOBIN 12.3 g/dL (13.5-17.5); LYMPHOCYTES # (AUTO) 1.4 K/uL (0.8-4.8); LYMPHOCYTES % (AUTO) 28.9 % (20.0-44.0); MEAN CORPUSCULAR HGB CONC 34 g/dl (31.0-36.0); MEAN CORPUSCULAR VOLUME 88 fL (80-96); MONOCYTES # (AUTO) 0.3 K/uL (0.1-1.30); MONOCYTES % (AUTO) 5.4 % (2.0-12.0); NEUTROPHILS # (AUTO) 2.8 K/uL (1.8-8.9); NEUTROPHILS % (AUTO) 56.7 % (43.0-81.0); PLATELET COUNT (AUTO) 137 K/uL (150-450); RED BLOOD CELL COUNT(AUTO) 4.09 MIL/uL (4.5-6.0); WHITE BLOOD COUNT (AUTO) 4.9 K/uL (4.3-11.0)
[2021-10-24 21:28] LABS: CARBON DIOXIDE 16 mmol/L (21-32); CHLORIDE 85 mmol/L (98-107); CREATININE 2.1 mg/dL (0.6-1.3); POTASSIUM 4.9 mmol/L (3.5-5.1); UREA NITROGEN, BLOOD 35 mg/dL (7-18)
[2021-10-24 21:30] LABS: ALANINE AMINOTRANSFERASE < 6 U/L (12-78); ALBUMIN 3.9 g/dL (3.4-5.0); ALKALINE PHOSPHATASE 216 U/L (46-116); ASPARTATE AMINOTRANSFERASE 10 U/L (15-37); BILIRUBIN,TOTAL 1.3 mg/dL (0.2-1.0); GLUCOSE 889 mg/dL (74-106); TOTAL PROTEIN, SERUM 8.2 g/dL (6.4-8.2)
[2021-10-24 21:31] LABS: SODIUM SERUM 115 mmol/L (136-145)
[2021-10-24] MEDS ORDERED: ACETAMINOPHEN 325 MG TABLET PO PRN (22:00)
[2021-10-24] MEDS ORDERED: IV NS 0.9% 1,000 ML BAG IV ONE (22:00)
[2021-10-24] MEDS ORDERED: hydrALAZINE HCL IV 20 MG VIAL IV PRN (22:00)
[2021-10-24] MEDS ORDERED: INSULIN REGULAR, HUMAN 100 UNITS in IV NS 0.9% 100 ML IV PRN (22:00)
[2021-10-24] MEDS ORDERED: IV NS 0.9% 1,000 ML IV PRN (22:00)
[2021-10-24] MEDS ORDERED: ONDANSETRON HCL/PF 4 MG/2 ML VIAL IVP PRN (22:00)
[2021-10-24] MEDS ORDERED: MORPHINE SULFATE INJ 2 MG/ML DISP.SYRIN IV PRN (22:00)
[2021-10-24] MEDS ORDERED: LABETALOL 20 MG/4 ML VIAL IV PRN (22:00)
[2021-10-24 22:12] LABS: ABG BASE EXCESS -7.4 mmol/L; ABG PCO2 33.5 mmHg (35.0-45.0); ABG PH 7.336 (7.350-7.450); ABG PO2 92.5 mmHg (75.0-100.0); COHb 0.3 % (0.5-1.5); MetHb 0.5 % (0.0-1.5); SITE, ABG Left Radial; VENT MODE, BG room air
[2021-10-24] MEDS ORDERED: INSULIN REGULAR, HUMAN 100 UNIT/ML 10 ML VIAL ONE (22:12)
--- NOTE | 2021-10-24 22:20 | NUR ---
MRSA SWAB COLLECTED AND SENT TO LAB. PATIENT'S BELONGINGS LIST DONE.
--- NOTE | 2021-10-24 22:38 | NUR ---
REPORT GIVEN TO ED FOR KOSTA
[2021-10-24] MEDS ORDERED: IV D5/0.45 NACL 1,000 ML IV PRN (23:00)
[2021-10-24] MEDS ORDERED: INSULIN REGULAR, HUMAN 100 UNIT in IV NS 0.9% 99 ML IV PRN (23:00)
[2021-10-24] MEDS ORDERED: DEXTROSE 50%-WATER 50 ML DISP.SYRIN IV PRN (23:00)
[2021-10-24] MEDS ORDERED: INSULIN REGULAR, HUMAN 100 UNIT/ML 3 ML VIAL SQ PRN (23:00)
[2021-10-24 23:01] LABS: CREATINE KINASE, TOTAL 51 U/L (39-308)
[2021-10-24 23:05] LABS: BILIRUBIN,URINE NEGATIVE (NEGATIVE); COLOR,URINE YELLOW (YELLOW); LEUKOCYTE ESTERASE ,URINE NEGATIVE (NEGATIVE); NITRITE, URINE NEGATIVE (NEGATIVE); PH,URINE 5.5 (5.0-8.0); PROTEIN,URINE NEGATIVE (NEGATIVE); UGLUCOSE >=1000 mg/dL (NEGATIVE); UROBILINOGEN,URINE 0.2 EU/dL (0.2)
[2021-10-24 23:10] LABS: BACTERIA,URINE None seen /HPF (None Seen); RBC,URINE 0-2 /HPF (0-2); SQUAMOUS EPITHELIAL CELL,UR Few /HPF (None Seen); WBC,URINE 0-2 /HPF (0-3)
[2021-10-24 23:19] LABS: CALCIUM, SERUM 8.6 mg/dL (8.5-10.1); CARBON DIOXIDE 19 mmol/L (21-32); CHLORIDE 90 mmol/L (98-107); POTASSIUM 5.2 mmol/L (3.5-5.1); SODIUM SERUM 121 mmol/L (136-145); UREA NITROGEN, BLOOD 34 mg/dL (7-18)
[2021-10-24 23:26] LABS: ALANINE AMINOTRANSFERASE 40 U/L (12-78); ALBUMIN 3.8 g/dL (3.4-5.0); ALKALINE PHOSPHATASE 209 U/L (46-116); BILIRUBIN,TOTAL 1.1 mg/dL (0.2-1.0)
--- NOTE | 2021-10-24 23:35 | NUR ---
RECEIVED PT FROM ER VIA [facility] ON ROOM AIR NO SIGN OF RESPIRATORY DISTRESS, SPO2 98% AWAKE ALERT ORIENTED X4, ABLE TO VERBALIZE NEEDS, WITH ONGOING INSULIN DRIP @ 7UNITS/HR, AND NS @ 150ML/HR INFUSING VIA RFA#20 INFUSING WELL, PT LASO HAVE RAC# 20 PATENT AND FLUSHED GOT AN ORDER FROM DR ESPINOSA ADMITTING MD TO D/C INSULIN DRIP AND JUST DO AGRESSIVE SSI Q4H AND ALSO CHANGE NS TO 1/2 NS @ 200ML/HR NOTED AND CARRIED OUT, SAFELY TRANSFER FROM [facility] TO BED HOOKED TO MONITOR WITH READING SINUS RHYTHM 80'S, V/S CHECKED AND RECORDED, HEAD TO TOE ASSESSMENT DONE WOUND ON BILATERAL LOWER EXTREMITIES NOTED, PICTURE TOOK AND DOCUMENTED, PER ER RECORD PT IS LEFT EYE LEGALLY BLIND BUT UPON MY ASSESSMENT PT CANNOT SEE ON BOTH EYES, ADMISSION ASSESSMENT DONE, ROOM ORIENTATION DONE TO THE PT VERBALIZE UNDERSTANDING, BED ON LOWEST POSITION AND LOCKED SIDE RAILS UP X2 CALL LIGHT WITHIN REACH WILL CONT TO MONITOR THE PT
--- NOTE | 2021-10-24 23:35 | NUR ---
PATIENT TRANSFERRED UNDER ACLS
[2021-10-24 23:54] LABS: MAGNESIUM 2.1 mg/dL (1.8-2.4); PHOSPHORUS 3.6 mg/dL (2.5-4.9)
[2021-10-24 23:55] LABS: MAGNESIUM 2.1 mg/dL (1.8-2.4); PHOSPHORUS 3.6 mg/dL (2.5-4.9)
[2021-10-24 23:56] LABS: ASPARTATE AMINOTRANSFERASE 25 U/L (15-37)
[2021-10-24 23:58] LABS: GLUCOSE > 500 mg/dL (74-106)
[2021-10-25] VITALS (24 sets, daily range): BP systolic 96–169; BP diastolic 50–99
[2021-10-25] MEDS: IV 1/2NS 1000 ML 1,000 ML IV PRN ×2 (00:05→04:59)
--- NOTE | 2021-10-25 00:07 | NUR ---
RECEIVED ORDER FROM DR ESPINOSA TO CHANGE THE AGGRESSIVE SLIDING SCALE FROM Q4H TO Q2H FOR 8 HOURS THE CHANGE IT TO ACHS NOTED AND CARRIED OUT
[2021-10-25] MEDS ORDERED: DEXTROSE 50%-WATER 50 ML DISP.SYRIN IV PRN ×2 (00:30→07:00)
[2021-10-25] MEDS: BLOOD SUGAR DIAGNOSTIC 1 EACH STRIP IN SCH ×6 (00:42→22:39)
[2021-10-25] MEDS: INSULIN REGULAR, HUMAN 100 UNIT/ML 3 ML VIAL SQ PRN ×7 (00:43→22:31)
[2021-10-25] MEDS ORDERED: INSULIN REGULAR, HUMAN 100 UNIT/ML 3 ML VIAL ONE (00:48)
[2021-10-25] MEDS ORDERED: INSULIN GLARGINE, 100 UNIT/ML CARTRIDGE SQ ONE (00:48)
[2021-10-25] MEDS: INSULIN GLARGINE, 100 UNIT/ML CARTRIDGE SQ SCH ×3 (00:54→20:26)
[2021-10-25] MEDS ORDERED: BLOOD SUGAR DIAGNOSTIC 1 EACH STRIP IN SCH (01:00)
--- NOTE | 2021-10-25 02:56 | NUR ---
CMP ORDER Q4H CANCEL DUE TO PT NOT ON INSULIN DRIP ANYMORE IS AWARE AND AGREE TO IT
[2021-10-25 02:57] LABS: MAGNESIUM 1.9 mg/dL (1.8-2.4); PHOSPHORUS 3.3 mg/dL (2.5-4.9)
[2021-10-25 03:29] LABS: ALBUMIN 3.3 g/dL (3.4-5.0); BILIRUBIN,TOTAL 0.9 mg/dL (0.2-1.0); CREATININE 1.7 mg/dL (0.6-1.3); POTASSIUM 3.5 mmol/L (3.5-5.1); TOTAL PROTEIN, SERUM 7.1 g/dL (6.4-8.2)
[2021-10-25 04:54] LABS: BASOPHILS % (AUTO) 0.7 % (0.0-2.0); EOSINOPHILS % (AUTO) 9.3 % (0.0-6.0); HEMATOCRIT 35 % (39-51); HEMOGLOBIN 12.1 g/dL (13.5-17.5); LYMPHOCYTES # (AUTO) 2.4 K/uL (0.8-4.8); LYMPHOCYTES % (AUTO) 41.5 % (20.0-44.0); MEAN CORPUSCULAR HGB CONC 34 g/dl (31.0-36.0); MEAN CORPUSCULAR VOLUME 86 fL (80-96); MONOCYTES # (AUTO) 0.4 K/uL (0.1-1.30); MONOCYTES % (AUTO) 6.4 % (2.0-12.0); NEUTROPHILS # (AUTO) 2.4 K/uL (1.8-8.9); NEUTROPHILS % (AUTO) 42.1 % (43.0-81.0); PLATELET COUNT (AUTO) 122 K/uL (150-450); RED BLOOD CELL COUNT(AUTO) 4.09 MIL/uL (4.5-6.0); WHITE BLOOD COUNT (AUTO) 5.8 K/uL (4.3-11.0)
[2021-10-25 05:36] LABS: ALBUMIN 3.5 g/dL (3.4-5.0); CALCIUM, SERUM 8.3 mg/dL (8.5-10.1); CREATININE 1.5 mg/dL (0.6-1.3); PHOSPHORUS 3.8 mg/dL (2.5-4.9); POTASSIUM 4.9 mmol/L (3.5-5.1); TOTAL PROTEIN, SERUM 7.9 g/dL (6.4-8.2)
--- NOTE | 2021-10-25 06:48 | NUR ---
PER DR ESPINOSA D/C THE Q2H SLIDING SCALE AND CHANGE IT TO ACH AGGRESIVE SLIDING SCALE NOTED AND CARRIED OUT
[2021-10-25] MEDS ORDERED: *INSULIN REGULAR(HUMULIN R)HUM 100 UNIT/ML VIAL SQ PRN (07:00)
--- NOTE | 2021-10-25 07:30 | NUR ---
OPENING NOTE: REPORT RECEIVED FROM JASON SANDERS. PT IS OFF INSULIN GTT, AC/HS ACCUCHECKS NOW. PT ALERT OX3, VISUALLY IMPAIRED, ABLE TO SEE SOME LIGHT. PT MOVES INDEPENDENTLY IN BED. PT CHECKED ON HOURLY AND PRN BY NURSING STAFF.
[2021-10-25] MEDS: PANTOPRAZOLE 40 MG VIAL IV SCH (09:11)
[2021-10-25] MEDS: ATORVASTATIN 40 MG TABLET PO SCH (09:12)
[2021-10-25] MEDS: ASPIRIN 81 MG TAB.CHEW PO SCH (09:12)
[2021-10-25] MEDS: LISINOPRIL (5MG) 5 MG TABLET PO SCH (09:12)
[2021-10-25] MEDS: glipiZIDE 5 MG TABLET PO SCH ×2 (09:12→17:14)
[2021-10-25] MEDS: ESCITALOPRAM OXALATE (10 MG) 10 MG TABLET PO SCH (09:12)
[2021-10-25] MEDS: HEPARIN SODIUM, PORCINE 5000 UNITS/1 ML VIAL SQ SCH ×2 (09:13→20:27)
--- NOTE | 2021-10-25 18:07 | NUR ---
END OF SHIFT NOTE: PT HAD AN UNEVENTFUL SHIFT. PT WAS DOWNGRADED TO MED/SURG, WILL TRANSFER TO ROOM 304 NEXT SHIFT. PT IS ALERT OX3, FOLLOWS COMMANDS. ATE 100% OF ALL MEALS. LAST BLOOD GLUCOSE WAS 164. PT CHECKED ON HOURLY AND PRN BY NURSING STAFF.
[2021-10-25 20:13] LABS: ALBUMIN 3.2 g/dL (3.4-5.0); BILIRUBIN,TOTAL 1.1 mg/dL (0.2-1.0); CALCIUM, SERUM 8.1 mg/dL (8.5-10.1); CREATININE 1.5 mg/dL (0.6-1.3); PHOSPHORUS 3.3 mg/dL (2.5-4.9); POTASSIUM 3.9 mmol/L (3.5-5.1); TOTAL PROTEIN, SERUM 7.3 g/dL (6.4-8.2)
--- NOTE | 2021-10-25 22:30 | NUR ---
RECHECKED BP 147/91, HR 73. WILL CONTINUE TO MONITOR
[2021-10-26] MEDS: BLOOD SUGAR DIAGNOSTIC 1 EACH STRIP IN SCH ×3 (05:22→16:53)
[2021-10-26] MEDS: INSULIN REGULAR, HUMAN 100 UNIT/ML 3 ML VIAL SQ PRN ×3 (05:22→16:56)
[2021-10-26 06:06] LABS: CALCIUM, SERUM 8.3 mg/dL (8.5-10.1); CREATININE 1.5 mg/dL (0.6-1.3); POTASSIUM 3.4 mmol/L (3.5-5.1)
--- NOTE | 2021-10-26 07:05 | NUR ---
RN OPENING NOTE RECEIVED PATIENT IN BED. PT A/O X4, PATIENT ON ROOM AIR AND BREATHING EVEN AND NONLABORED NOTED. NO S/S PAIN AND DISTRESS NOTED. RIGHT VISUALLY IMPAIRED, ABLE TO SEE SOME LIGHT. IV ACCESS RAC#20 AND RIGHT FOREARM # 20 INTACT AND PATENT. SAFETY MEASURE PROVIDED. LOW BED, BED LOCK, SIDE RAILS X2, CALL LIGHT WITHIN REACH. KEEP PROVIDE KOSTA.
[2021-10-26] MEDS ORDERED: INSU100V7 SQ (07:07)
[2021-10-26 07:30] LABS: BASOPHILS % (AUTO) 0.9 % (0.0-2.0); HEMATOCRIT 34 % (39-51); HEMOGLOBIN 11.7 g/dL (13.5-17.5); LYMPHOCYTES % (AUTO) 35.7 % (20.0-44.0); MEAN CORPUSCULAR HGB CONC 35 g/dl (31.0-36.0); MEAN CORPUSCULAR VOLUME 86 fL (80-96); MONOCYTES # (AUTO) 0.3 K/uL (0.1-1.30); MONOCYTES % (AUTO) 5.9 % (2.0-12.0); NEUTROPHILS # (AUTO) 2.6 K/uL (1.8-8.9); NEUTROPHILS % (AUTO) 47.5 % (43.0-81.0); PLATELET COUNT (AUTO) 126 K/uL (150-450); RED BLOOD CELL COUNT(AUTO) 3.93 MIL/uL (4.5-6.0); WHITE BLOOD COUNT (AUTO) 5.5 K/uL (4.3-11.0)
[2021-10-26 08:34] VITALS: BP 154/88
[2021-10-26] MEDS: PANTOPRAZOLE 40 MG VIAL IV SCH (08:53)
[2021-10-26] MEDS: ATORVASTATIN 40 MG TABLET PO SCH (08:53)
[2021-10-26] MEDS: ESCITALOPRAM OXALATE (10 MG) 10 MG TABLET PO SCH (08:53)
[2021-10-26] MEDS: LISINOPRIL (5MG) 5 MG TABLET PO SCH (08:54)
[2021-10-26] MEDS: glipiZIDE 5 MG TABLET PO SCH ×2 (08:55→17:13)
[2021-10-26] MEDS: ASPIRIN 81 MG TAB.CHEW PO SCH (08:55)
[2021-10-26] MEDS: HEPARIN SODIUM, PORCINE 5000 UNITS/1 ML VIAL SQ SCH (08:57)
[2021-10-26] MEDS: INSULIN GLARGINE, 100 UNIT/ML CARTRIDGE SQ SCH (09:09)
[2021-10-26] MEDS ORDERED: POTASSIUM CHLORIDE 20 MEQ TAB.PRT.SR PO ONE ×2 (10:00)
--- NOTE | 2021-10-26 11:00 | NUR ---
RN NOTES PT SEEN BY DR MEJIA THIS MORNING WITH ORDER TO CALL PT'S FIELD SERVICES DIRECTOR TO F/U ON PT'S INSULIN MEDICATIONS. PT CALLED ON HIS CP HIS FIELD SERVICES DIRECTOR NAMED [facility] , PT HANDED THE XCALL TO ME AND SPOKED TO MOSES, BOTTLE WASHER MACHINE AND STATED THAT SHE WILL RELAY THE MESSAGE TO DR PURI AND WILL GIVE US A CALL BACK. PT IS AWARE.
--- NOTE | 2021-10-26 11:34 | NUR ---
WOUND CARE CONSULT: PT PRESENTS WITH MULTIPLE SCABS AND CALLUSES/SCABS ON LOWER EXTREMITIES, PRESENT ON ADMISSION. PT STATES WILL SEE HIS [employer] FIRE SPECIALIST SUPERVISOR NEXT TUESDAY FOR FOLLOW UP. WILL SEE PRN.
[2021-10-26 15:52] VITALS: BP 139/85
[2021-10-26] MEDS ORDERED: MUPIROCIN OINT 2% 22 GM TUBE NS SCH (16:00)
--- NOTE | 2021-10-26 16:03 | NUR ---
MARILYN ELDRE RECEIVED CALL FROM [facility] THAT PT HAS MRSA OF RIGHT NARE SLIGHT GROWTH, MADE AWARE WITH ORDER TO APPLY BACTROBAN NOW AND BID X 7DAYS.
--- NOTE | 2021-10-26 17:53 | NUR ---
RN DISCHARGED NOTES PT DISCHARGED HOME IN STABLE CONDITION. A/O X4 AND ABLE TO MAKE NEEDS KNOWN. V/S STABLE AND RECORDED. PHOTOS OF SKIN ISSUES TAKEN AND FILED IN HIS CHART. ALL BELONGINGS ACCOUNTED FOR AND SIGNED FORM. IV ACCESSES ON RAC AND RFA BOTH REMOVED WITH NO ACTIVE BLEEDING NOTED, DRY PRESSURE DRESSINGS APPLIED AT SITES. HEALTH TEACHINGS GIVEN TO PT AND VERBALIZED UNDERSTANDINGS. PT GARBAGE PERSON DIDN'T CALL BACK BUT PT STATED THAT HE WILL DEFINITELY CALL HER FOR HIS INSULIN LANTUS DOSAGE AND DIABETIC MEDICATIONS TOMORROW MORNING. PT LEFT UNIT VIA WHEELCHAIR AT 1700 ACCOMPANIED BY [place] TO [id number]. PT STATED THAT HE WILL TAKE PUBLIC TRANSPORTATION TO GO HOME. MD AND CHARGE NURSE AWARE OF DISCHARGE.
== END 2021-10-26 17:45 | disposition home or self-care (01) | DRG 637 ==
LOC: ER 20:04 → ICU 22:23 → MED 10-25 19:27
PROVIDERS: ADMIT Internal Medicine; ATTEND Family Medicine
DX: E11.00 Type 2 diabetes mellitus with hyperosmolarity without nonketotic hyperglycemic-hyperosmolar coma (NKHHC) (principal); N17.0 Acute kidney failure with tubular necrosis; E86.0 Dehydration; I12.9 Hypertensive chronic kidney disease with stage 1 through stage 4 chronic kidney disease, or unspecified chronic kidney disease; N18.9 Chronic kidney disease, unspecified; E78.5 Hyperlipidemia, unspecified; Z79.82 Long term (current) use of aspirin; Z79.84 Long term (current) use of oral hypoglycemic drugs; Z91.19 Patient's noncompliance with other medical treatment and regimen; Z20.822 Contact with and (suspected) exposure to COVID-19; H54.61 Unqualified visual loss, right eye, normal vision left eye; M25.532 Pain in left wrist; M25.531 Pain in right wrist; W03.XXXA Other fall on same level due to collision with another person, initial encounter; Y93.9 Activity, unspecified; Y92.89 Other specified places as the place of occurrence of the external cause
CPT/HCPCS: 36415; 36600; 71100-TC; 73090-TC; 73110; 80048-TC; 80053-TC; 81001; 82010-TC; 82550-TC; 82803-TC; 82962-TC; 83605-TC; 83735-TC; 84100-TC; 85025-TC; 87040-TC; 87081-TC; C9113; G0378; J1644; J1815; J3490; J7030